=== PATIENT | female | born 1930 | race Caucasian/White ===

== ENCOUNTER → 2016-07-25 | Outpatient (CLI) | payer MEDICARE, BC ==
[~2016-07-25] MED LIST: ADVAIR 500/28 DISKU1 INH; ADVAIR 500/28 DISKUS IH; ADVAIR DISKUS1 DS2 IH; ALBUTEROL0.09 MG/A4 IH; ALBUTEROL2.5 MG/3 M IH; ALLFEN400 MG PO; ANTIVERT 12.512.5 MG PO; ANTIVERT12.5 M1 PO; ATIVAN 0.50.5 MG/TAB PO; ATIVAN1 MG PO; ATROVENT I0.2 MG/1 M IH; ATROVENT INHALE14 GM IH; AYR SALINE50 ML NAS; BACTROBAN 22GM22 GM TOP; BIAXIN PO; BISACODYL RC; BUMETANIDE2 M1 PO; BUMETANIDE2 MG PO; BUMEX2 MG PO; BYSTOLIC10 MG PO; CALCIUM 600 MG-1 TAB PO; CEPHALEXIN250 M1 PO; CINNAMON500 MG PO; CITALOPRAM40 MG PO; CLEOCIN HC150 MG/CAP PO; COLACE 100100 MG/CAP PO; COUMADIN 5MG5 MG/TAB PO; CRANBERRY1 CAP PO; CRANBERRY400 MG PO; CULTURELLE1 EACH PO; DOCUSATE SODIUM1 TAB PO; DOXYCYCLINE 10100 MG PO; DUO-KAPS1 CAP PO; DURAGESIC TD; ENABLEX 7.5MG7.5 MG PO; ESCITALOPRAM20 MG PO; FENTANYL 12MCG TP; FLONASE ALLERG9.9 ML NAS; FLONASE NASAL S16 GM NS; FLOVENT 220MCG7.9 GM IH; FLOVENT DI100 MCG/Ac IH; FLUTICASON0.05 MG/Ac NS; GAS RELIEF80 MG PO; GLUCOPHAGE PO; GOOD NEIGHBOR100 M2 PO; HYDROCODONE BIT1 T41 PO; IPRATROPIUM BROM3 M1 IH; ISORDIL 20MG20 M1 PO; KETOROLAC TROME10 MG PO; LAMICTAL XR50 MG PO; LANTUS SOLOS100 U/ML SC; LEVAQUIN 2250 MG/TAB PO; LEVAQUIN 750MG750 M1 PO; LEVOTHYROXIN0.125 MG PO; LEVOTHYROXINE0.1 MG PO; LEXAPRO20 MG PO; LISINOPRIL2.5 MG PO; LISINOPRIL5 MG PO; LOVENOX 4040 MG/0.4 SQ; M2 ZINC 5050 MG PO; MELADOX NATURAL3 MG PO; MELATONIN1 M1 PO; MELATONIN5 M2 PO; MERREM IV; METFORMIN750 MG PO; MILK OF MAG30 ML/CUP PO; MIRALAX PA17 GM/Dose PO; MIRAPEX0.125 MG PO; MIRAPEX0.25 M1 PO; MUCINEX 60600 MG/TA1 PO; MUCOMYST 4 ML4 M1; MYLICON PO; MYRBETRIQ25 MG PO; NATURAL E400 IU PO; NEXIUM 20MG CAP20 MG PO; NITROQUICK0.4 MG SL; NORCO 325 MG-51 TA1 PO; NORCO 325 MG-51 TAB PO; NORCO 325 MG-7.1 TAB PO; NORTRIPTYLINE H25 M1 PO; NORTRIPTYLINE25 MG PO; NOVOLOG 100U100 U/ML SQ; ONDANSETRON ODT8 MG PO; POTASSIUM CITR10 MEQ PO; POTASSIUM20 MEQ PO; PREDNISONE10 MG PO; PREDNISONE20 M1 PO; PREDNISONE20 MG PO; PROAIR RESPICL90 MCG IH; PROBIOTIC FORMU1 CAP PO; PYRIDIUM 100MG100 MG PO; REGLAN 10MG10 MG/TAB PO; REGLAN 5MG T5 MG/TAB PO; RESTORIL PO; SPIRIVA INH IH; SPIRIVA18 MCG IH; SSKI1 GM/ML PO; SYNTHROID25 MCG PO; TEMOVATE15 GM TOP; TRAZADONE HYDR100 MG PO; TRIAMCINOLONE0.1% TP; TYLENOL 500MG500 MG PO; VIBRAMYCIN HYC100 MG PO; VITAMIN C500 M5 PO; VITAMIN C500 MG PO; VITAMIN D1000 IU PO; VITAMIN E100 I3 PO; VORICONAZOLE PO; ZINC15 M1 PO; ZINC50 M2 PO; ZITHROMAX Z PA250 MG PO; ZOFRAN8 MG PO; ZYRTEC10 M1 PO; ZYRTEC10 MG PO; [UNRECOGNIZED DRUG - OTHER]; [UNRECOGNIZED DRUG - OTHER] IH
== END ==
LOC: LAB 08:35
DX: Z00.00 Encounter for general adult medical examination without abnormal findings (principal); E11.9 Type 2 diabetes mellitus without complications; I10 Essential (primary) hypertension

== ENCOUNTER → 2016-10-08 | Outpatient (CLI) | payer MEDICARE, BC ==
[2016-03-06 14:40] VITALS: BP 134/68
== END ==
LOC: LAB 11:21
DX: E03.8 Other specified hypothyroidism (principal)

== ENCOUNTER → 2016-11-01 | Outpatient (CLI) | payer MEDICARE, BC ==
[2016-03-06 14:40] VITALS: BP 134/68
== END ==
LOC: RAD 15:26
DX: R10.84 Generalized abdominal pain (principal); H66.91 Otitis media, unspecified, right ear; I10 Essential (primary) hypertension; F33.1 Major depressive disorder, recurrent, moderate

== ENCOUNTER → 2017-05-23 | Outpatient (CLI) | payer MEDICARE, BC ==
[2016-03-06 14:40] VITALS: BP 134/68
== END ==
LOC: RAD 12:43
DX: M48.061 Spinal stenosis, lumbar region without neurogenic claudication (principal); M16.0 Bilateral primary osteoarthritis of hip; M47.816 Spondylosis without myelopathy or radiculopathy, lumbar region

== ENCOUNTER → 2017-06-19 | Outpatient (CLI) | payer MEDICARE, BC ==
[2016-03-06 14:40] VITALS: BP 134/68
== END ==
LOC: RAD 11:59
DX: J44.1 Chronic obstructive pulmonary disease with (acute) exacerbation (principal); J10.1 Influenza due to other identified influenza virus with other respiratory manifestations; Z88.4 Allergy status to anesthetic agent; Z88.1 Allergy status to other antibiotic agents; Z88.5 Allergy status to narcotic agent; Z88.0 Allergy status to penicillin; Z88.2 Allergy status to sulfonamides

== ENCOUNTER → 2017-09-15 | Outpatient (CLI) | payer MEDICARE, BC ==
[2016-03-06 14:40] VITALS: BP 134/68
== END ==
LOC: LAB 10:03
DX: E07.9 Disorder of thyroid, unspecified (principal)

== ENCOUNTER 2017-09-20 14:12 | Emergency (ER) | payer MEDICARE, BC ==
[~2017-09-20] VITALS: Wt 125.0 kg
[2017-09-20] MEDS ORDERED: ZESTRIL2.5 M1 PO (14:35)
[2017-09-20] MEDS ORDERED: ATROVENT I0.2 MG/1 M IH (14:37)
[2017-09-20 14:59] LABS: EOS # 0.3 (0.04-0.40); EOS % 4.4 % (1.0-5.0); HEMATOCRIT 38.2 % (37.0-47.0); HEMOGLOBIN 12.2 g/dL (12.5-16.0); LYMPH# 0.9 (1.50-4.00); MEAN CELL VOLUME 98 fl (78-100); MEAN CORPUSCULAR HEMOGLOBIN 31 pg (27-31); MEAN CORPUSCULAR HGB CONC 32 g/dL (33-37); MEAN PLATELET VOLUME 10.7 fl (7.4-10.4); MONO # 0.5 (0.20-0.80); NEU # 4.6 (1.40-6.50); PLATELET COUNT 203 K/mm3 (130-400); RED CELL DISTRIBUTION WIDTH 14.3 % (11.5-14.5); WHITE BLOOD COUNT 6.4 K/mm3 (4.8-10.8)
[2017-09-20 15:12] LABS: ALBUMIN 3.7 g/dL (3.5-5.0); BUN/CREATININE RATIO 24.1 (6.0-26.0); CALCIUM 9.1 mg/dL (8.4-10.2); POTASSIUM 4.3 mmol/L (3.6-5.0); TOTAL BILIRUBIN 0.7 mg/dL (0.2-1.3)
[2017-09-20] MEDS ORDERED: POTASSIUM IODID PO (15:21)
[2017-09-20 15:40] LABS: PH-URINE 5.5 (5.0 - 8.0); URINE APPEARANCE CLEAR; URINE BILIRUBIN NEGATIVE (NEGATIVE); URINE BLOOD NEGATIVE (NEGATIVE); URINE COLOR STRAW; URINE GLUCOSE NEGATIVE (NEGATIVE); URINE KETONE NEGATIVE (NEGATIVE); URINE LEUKOCYTE ESTERASE 1+ (NEGATIVE); URINE NITRATE NEGATIVE (NEGATIVE); URINE PROTEIN(semi-quant) NEGATIVE (NEGATIVE); URINE UROBILINOGEN NORMAL (NORMAL)
[2017-09-20] MEDS ORDERED: PREDNISONE20 M1 PO (17:18)
[2017-09-20 18:01] VITALS: BP 126/78
== END 2017-09-20 17:35 | disposition home or self-care (01) ==
LOC: ED 14:12
PROVIDERS: Family Medicine
DX: J45.901 Unspecified asthma with (acute) exacerbation (principal); R60.9 Edema, unspecified; N39.0 Urinary tract infection, site not specified; J44.9 Chronic obstructive pulmonary disease, unspecified; E11.9 Type 2 diabetes mellitus without complications; I50.9 Heart failure, unspecified; Z79.4 Long term (current) use of insulin

== ENCOUNTER → 2017-10-06 | Outpatient (CLI) | payer MEDICARE, BC ==
[2017-09-20 18:01] VITALS: BP 126/78
[~2017-10-06] MED LIST changes: +POTASSIUM IODID PO; +ZESTRIL2.5 M1 PO
== END ==
LOC: LAB 11:50
DX: J44.9 Chronic obstructive pulmonary disease, unspecified (principal); E11.9 Type 2 diabetes mellitus without complications; H65.90 Unspecified nonsuppurative otitis media, unspecified ear; L98.491 Non-pressure chronic ulcer of skin of other sites limited to breakdown of skin; M21.612 Bunion of left foot

== ENCOUNTER → 2018-03-18 | Outpatient (CLI) | payer MEDICARE, BC | LOC: LAB 10:49 | DX: J44.9 Chronic obstructive pulmonary disease, unspecified (principal); E11.9 Type 2 diabetes mellitus without complications; H65.90 Unspecified nonsuppurative otitis media, unspecified ear; L98.491 Non-pressure chronic ulcer of skin of other sites limited to breakdown of skin; M21.612 Bunion of left foot ==

== ENCOUNTER → 2018-04-10 | Outpatient (CLI) | payer MEDICARE, BC ==
[2018-04-10 19:50] LABS: CALCIUM 10.4 mg/dL (8.4-10.2); POTASSIUM 4.3 mmol/L (3.6-5.0)
== END ==
LOC: LAB 14:01
PROVIDERS: Family Medicine
DX: I50.32 Chronic diastolic (congestive) heart failure (principal)

== ENCOUNTER → 2018-06-25 | Outpatient (CLI) | payer MEDICARE, BC ==
[2018-06-25 16:46] LABS: HEMATOCRIT 39.5 % (37.0-47.0); HEMOGLOBIN 12.6 g/dL (12.5-16.0); MEAN PLATELET VOLUME 11.1 fl (7.4-10.4); RED BLOOD COUNT 4.13 M/mm3 (4.10-5.30); RED CELL DISTRIBUTION WIDTH 13.6 % (11.5-14.5); WHITE BLOOD COUNT 7.5 K/mm3 (4.8-10.8)
[2018-06-25 16:50] LABS: CALCIUM 9.5 mg/dL (8.4-10.2); POTASSIUM 3.9 mmol/L (3.6-5.0)
== END ==
LOC: LAB 16:22
PROVIDERS: Family Medicine
DX: I50.32 Chronic diastolic (congestive) heart failure (principal); J44.9 Chronic obstructive pulmonary disease, unspecified; E11.622 Type 2 diabetes mellitus with other skin ulcer; L98.491 Non-pressure chronic ulcer of skin of other sites limited to breakdown of skin; M21.612 Bunion of left foot; R60.0 Localized edema; G25.81 Restless legs syndrome; I83.93 Asymptomatic varicose veins of bilateral lower extremities; H65.90 Unspecified nonsuppurative otitis media, unspecified ear

== ENCOUNTER → 2018-09-30 | Outpatient (CLI) | payer MEDICARE, BC | LOC: RAD 16:03 | DX: M48.061 Spinal stenosis, lumbar region without neurogenic claudication (principal); M16.11 Unilateral primary osteoarthritis, right hip ==

== ENCOUNTER 2018-11-30 06:30 | Observation (INO) | payer MEDICARE, BC ==
[~2018-11-30] VITALS: Ht 170.2 cm; Wt 122.7 kg
[2018-11-30] MEDS ORDERED: ACETAMINOPHEN-H1 TA2 PO (07:04)
[2018-11-30] MEDS ORDERED: ADVAIR DISKUS1 DS2 IH (07:06)
[2018-11-30] MEDS ORDERED: BUMEX 1MG TA1 MG/TA1 PO (07:07)
[2018-11-30 07:09] LABS: HEMATOCRIT 39.2 % (37.0-47.0); HEMOGLOBIN 12.2 g/dL (12.5-16.0); MEAN CELL VOLUME 98 fl (78-100); MEAN CORPUSCULAR HEMOGLOBIN 31 pg (27-31); MEAN CORPUSCULAR HGB CONC 31 g/dL (33-37); MEAN PLATELET VOLUME 10.2 fl (7.4-10.4); PLATELET COUNT 193 K/mm3 (130-400); RED BLOOD COUNT 3.99 M/mm3 (4.10-5.30); RED CELL DISTRIBUTION WIDTH 14.1 % (11.5-14.5); WHITE BLOOD COUNT 9.6 K/mm3 (4.8-10.8)
[2018-11-30] MEDS ORDERED: IPRATROPIUM BROM3 M1 IH (07:09)
[2018-11-30] MEDS ORDERED: FERROUS SULFAT325 M4 PO (07:10)
[2018-11-30 07:19] LABS: POTASSIUM 4.4 mmol/L (3.5-5.1); SODIUM 140 mmol/L (136-145)
[2018-11-30 07:20] LABS: ALBUMIN 3.4 g/dL (3.4-4.8); CALCIUM 9.3 mg/dL (8.3-10.5)
[2018-11-30] MEDS ORDERED: ATROVENT I0.2 MG/1 M IH (07:20)
[2018-11-30 07:21] LABS: TOTAL PROTEIN 5.7 g/dL (6.2-8.1)
[2018-11-30] MEDS ORDERED: ISORDIL 20MG20 MG (07:21)
[2018-11-30 07:22] LABS: CARBON DIOXIDE 23 mmol/L (23-31)
[2018-11-30 07:23] LABS: GLUCOSE 197 mg/dL (65-105); TOTAL BILIRUBIN 0.6 mg/dL (0.2-1.2)
[2018-11-30 07:26] LABS: AST-SGOT 10 U/L (5-34)
[2018-11-30] MEDS ORDERED: LEVOTHYROXINE125 MCG PO (07:26)
[2018-11-30 07:29] LABS: ALT/SGPT 16 U/L (0-55)
[2018-11-30] MEDS ORDERED: LEXAPRO20 M1 PO (07:29)
[2018-11-30] MEDS ORDERED: MELOXICAM15 MG PO (07:31)
[2018-11-30 07:34] LABS: LYMPHOCYTE 5 % (20-51); MONOCYTE 4 % (3-10); NEUTROPHILS 90 % (42-75)
[2018-11-30 07:35] LABS: LIPASE 17 U/L (8-78)
[2018-11-30 07:38] LABS: TROPONIN-I < 0.03 ng/mL (<0.030)
[2018-11-30 09:46] VITALS: BP 143/71
[2018-11-30 11:00] VITALS: BP 139/79
[2018-11-30 15:12] VITALS: BP 123/77
[2018-11-30 18:56] VITALS: BP 121/67
[2018-11-30 22:29] VITALS: BP 99/60
[2018-12-01 02:34] VITALS: BP 132/66
[2018-12-01 06:06] VITALS: BP 122/72
[2018-12-01 07:12] LABS: EOS # 0.2 (0.04-0.40); EOS % 1.9 % (1.0-5.0); HEMATOCRIT 36.8 % (37.0-47.0); HEMOGLOBIN 11.4 g/dL (12.5-16.0); MEAN CELL VOLUME 101 fl (78-100); MEAN CORPUSCULAR HEMOGLOBIN 31 pg (27-31); MEAN CORPUSCULAR HGB CONC 31 g/dL (33-37); MEAN PLATELET VOLUME 10.2 fl (7.4-10.4); MONO # 0.5 (0.20-0.80); NEU # 6.2 (1.40-6.50); PLATELET COUNT 193 K/mm3 (130-400); RED BLOOD COUNT 3.66 M/mm3 (4.10-5.30); RED CELL DISTRIBUTION WIDTH 14.4 % (11.5-14.5)
[2018-12-01 07:19] LABS: ALBUMIN 3.2 g/dL (3.4-4.8); POTASSIUM 4.9 mmol/L (3.5-5.1)
[2018-12-01 07:20] LABS: CALCIUM 8.4 mg/dL (8.3-10.5)
[2018-12-01 07:21] LABS: TOTAL PROTEIN 5.4 g/dL (6.2-8.1)
[2018-12-01 07:23] LABS: TOTAL BILIRUBIN 0.8 mg/dL (0.2-1.2)
[2018-12-01 11:00] VITALS: BP 145/60
== END 2018-12-01 12:00 | disposition home or self-care (01) ==
LOC: ED 06:30 → MED/SURG 09:13
PROVIDERS: Family Medicine; ADMIT Nurse Practitioner Primary Care
DX: K52.9 Noninfective gastroenteritis and colitis, unspecified (principal); E11.9 Type 2 diabetes mellitus without complications; E03.9 Hypothyroidism, unspecified; F41.9 Anxiety disorder, unspecified; K58.9 Irritable bowel syndrome, unspecified; I10 Essential (primary) hypertension; J44.9 Chronic obstructive pulmonary disease, unspecified; E66.9 Obesity, unspecified; Z79.899 Other long term (current) drug therapy; Z79.84 Long term (current) use of oral hypoglycemic drugs; Z88.0 Allergy status to penicillin; Z88.2 Allergy status to sulfonamides
CPT/HCPCS: G0378; J1650; J1940; J2270; J2405; J7030; Q9967

== ENCOUNTER → 2018-12-14 | Outpatient (CLI) | payer MEDICARE, BC ==
[2018-12-01 11:00] VITALS: BP 145/60
[~2018-12-14] MED LIST changes: +ACETAMINOPHEN-H1 TA2 PO; +BUMEX 1MG TA1 MG/TA1 PO; +FERROUS SULFAT325 M4 PO; +ISORDIL 20MG20 MG; +LEVOTHYROXINE125 MCG PO; +LEXAPRO20 M1 PO; +MELOXICAM15 MG PO
== END ==
LOC: RAD 14:16
DX: E11.9 Type 2 diabetes mellitus without complications (principal); G25.81 Restless legs syndrome; K52.9 Noninfective gastroenteritis and colitis, unspecified; I83.93 Asymptomatic varicose veins of bilateral lower extremities; E03.9 Hypothyroidism, unspecified; R60.0 Localized edema; R10.9 Unspecified abdominal pain

== ENCOUNTER → 2019-01-27 | Outpatient (CLI) | payer MEDICARE, BC | LOC: RAD 11:47 | DX: M19.042 Primary osteoarthritis, left hand (principal); W19.XXXA Unspecified fall, initial encounter ==

== ENCOUNTER → 2019-02-19 | Outpatient (CLI) | payer MEDICARE, BC ==
[2019-02-19 12:42] LABS: HEMOGLOBIN 12.5 g/dL (12.5-16.0); MEAN PLATELET VOLUME 10.4 fl (7.4-10.4); RED BLOOD COUNT 3.94 M/mm3 (4.10-5.30); RED CELL DISTRIBUTION WIDTH 13.7 % (11.5-14.5); WHITE BLOOD COUNT 8.1 K/mm3 (4.8-10.8)
== END ==
LOC: LAB 12:09
PROVIDERS: Family Medicine
DX: M19.011 Primary osteoarthritis, right shoulder (principal); G25.81 Restless legs syndrome; I83.93 Asymptomatic varicose veins of bilateral lower extremities

== ENCOUNTER 2019-03-02 14:18 | Inpatient (IN) | payer MEDICARE, BC ==
[~2019-03-02] VITALS: Ht 170.2 cm; Wt 122.6 kg
[~2019-03-02 14:18] MED LIST changes: +AZITHROMYCIN 500MGPK PO; +B-121000 MCG PO; +CINNAMON BARK P1 POW; +CRANBERRY200 MG PO; +DAILY VITAMIN1 EAC3 PO; +ELIQUIS5 MG PO; +INCRUSE EL62.5 MCG/A IH; -ISORDIL 20MG20 M1 PO; +ISORDIL 20MG20 MG PO; +K-TAB20 MEQ PO; +LANTUS SOLOS100 U/ML SQ; +NATURAL ZINC50 MG PO; +NIACIN50 M1 PO; -NITROQUICK0.4 MG SL; +NITROSTAT0.4 M1 SL; +ONDANSETRON HYDR4 MG PO; +REMERON15 MG PO; -VITAMIN E100 I3 PO; +VITAMIN E200 UNI1 PO; -ZINC50 M2 PO
[2019-03-02 15:31] VITALS: BP 151/74
[2019-03-02 18:00] VITALS: BP 145/68
[2019-03-03 05:53] VITALS: BP 144/62
[2019-03-03 18:48] VITALS: BP 114/66
[2019-03-04 06:02] VITALS: BP 150/73
[2019-03-04 18:00] VITALS: BP 112/60
[2019-03-05 06:09] VITALS: BP 158/67
[2019-03-05] MEDS ORDERED: DIFLUCAN150 M1 PO (11:25)
[2019-03-05] MEDS ORDERED: NOVOLOG FLEX100 U/ML SQ (11:27)
[2019-03-05] MEDS ORDERED: PREDNISONE20 M1 PO (11:28)
[2019-03-05] MEDS ORDERED: NYAMYC100000 U/G TP (11:29)
[2019-03-05 13:23] VITALS: BP 132/70
== END 2019-03-05 13:11 | disposition home or self-care (01) | DRG 947 ==
LOC: MED/SURG 14:18
PROVIDERS: ADMIT Nurse Practitioner Primary Care
DX: R53.81 Other malaise (principal); J18.9 Pneumonia, unspecified organism; J44.1 Chronic obstructive pulmonary disease with (acute) exacerbation; J44.0 Chronic obstructive pulmonary disease with (acute) lower respiratory infection; I48.0 Paroxysmal atrial fibrillation; E03.9 Hypothyroidism, unspecified; I12.9 Hypertensive chronic kidney disease with stage 1 through stage 4 chronic kidney disease, or unspecified chronic kidney disease; E11.22 Type 2 diabetes mellitus with diabetic chronic kidney disease; N18.9 Chronic kidney disease, unspecified; L30.8 Other specified dermatitis; E66.9 Obesity, unspecified; F32.9 Major depressive disorder, single episode, unspecified; M48.061 Spinal stenosis, lumbar region without neurogenic claudication; Z79.52 Long term (current) use of systemic steroids; Z79.01 Long term (current) use of anticoagulants; Z79.891 Long term (current) use of opiate analgesic; Z79.4 Long term (current) use of insulin; Z90.710 Acquired absence of both cervix and uterus; Z96.652 Presence of left artificial knee joint; Z88.0 Allergy status to penicillin; Z88.2 Allergy status to sulfonamides; Z88.6 Allergy status to analgesic agent
CPT/HCPCS: J1815; J7512

== ENCOUNTER 2019-03-09 14:33 | Emergency (ER) | payer MEDICARE, BC ==
[~2019-03-09] VITALS: Wt 125.0 kg
[~2019-03-09 14:33] MED LIST changes: +DIFLUCAN150 M1 PO; +NOVOLOG FLEX100 U/ML SQ; +NYAMYC100000 U/G TP
[2019-03-09 14:58] LABS: HEMATOCRIT 41.6 % (37.0-47.0); HEMOGLOBIN 13.4 g/dL (12.5-16.0); MEAN CELL VOLUME 98 fl (78-100); MEAN CORPUSCULAR HEMOGLOBIN 32 pg (27-31); MEAN CORPUSCULAR HGB CONC 32 g/dL (33-37); MEAN PLATELET VOLUME 11.8 fl (7.4-10.4); PLATELET COUNT 169 K/mm3 (130-400); RED BLOOD COUNT 4.26 M/mm3 (4.10-5.30); RED CELL DISTRIBUTION WIDTH 13.4 % (11.5-14.5); WHITE BLOOD COUNT 12.4 K/mm3 (4.8-10.8)
[2019-03-09 15:00] LABS: ALBUMIN 3.6 g/dL (3.4-4.8); POTASSIUM 4.5 mmol/L (3.5-5.1)
[2019-03-09 15:02] LABS: CALCIUM 9.6 mg/dL (8.3-10.5)
[2019-03-09 15:03] LABS: TOTAL PROTEIN 6.3 g/dL (6.2-8.1)
[2019-03-09 15:05] LABS: TOTAL BILIRUBIN 0.5 mg/dL (0.2-1.2)
[2019-03-09 15:05] LABS: URINE APPEARANCE CLEAR; URINE COLOR YELLOW; URINE KETONE NEGATIVE (NEGATIVE); URINE PROTEIN(semi-quant) NEGATIVE (NEGATIVE)
[2019-03-09 15:06] LABS: URINE BILIRUBIN NEGATIVE (NEGATIVE); URINE BLOOD NEGATIVE (NEGATIVE); URINE LEUKOCYTE ESTERASE NEGATIVE (NEGATIVE); URINE MUCUS PRESENT (NOT PRESENT); URINE NITRATE NEGATIVE (NEGATIVE); URINE UROBILINOGEN NORMAL (NORMAL)
[2019-03-09 15:09] LABS: LYMPHOCYTE 4 % (20-51); MONOCYTE 4 % (3-10); NEUTROPHILS 92 % (42-75)
[2019-03-09 16:37] VITALS: BP 154/70
== END 2019-03-09 17:00 | disposition home or self-care (01) ==
LOC: ED 14:33
PROVIDERS: Nurse Practitioner
DX: E11.65 Type 2 diabetes mellitus with hyperglycemia (principal); I50.9 Heart failure, unspecified; J44.9 Chronic obstructive pulmonary disease, unspecified; I48.91 Unspecified atrial fibrillation; F32.9 Major depressive disorder, single episode, unspecified; F41.9 Anxiety disorder, unspecified; K21.9 Gastro-esophageal reflux disease without esophagitis; K58.9 Irritable bowel syndrome, unspecified; Z98.890 Other specified postprocedural states; Z79.4 Long term (current) use of insulin; Z90.710 Acquired absence of both cervix and uterus; Z96.652 Presence of left artificial knee joint; Z79.52 Long term (current) use of systemic steroids; Z79.51 Long term (current) use of inhaled steroids
CPT/HCPCS: J7030

== ENCOUNTER → 2019-03-19 | Outpatient (CLI) | payer MEDICARE, BC ==
[2019-03-09 16:37] VITALS: BP 154/70
== END ==
LOC: RAD 10:43
DX: S99.921A Unspecified injury of right foot, initial encounter (principal); W19.XXXA Unspecified fall, initial encounter

== ENCOUNTER → 2019-05-06 | Outpatient (CLI) | payer MEDICARE, BC ==
[2019-05-06 07:41] VITALS: BP 133/54
[2019-05-06 08:21] LABS: ALBUMIN 3.8 g/dL (3.4-4.8)
[2019-05-06 08:24] LABS: TOTAL PROTEIN 6.6 g/dL (6.2-8.1)
[2019-05-06 08:26] LABS: TOTAL BILIRUBIN 0.7 mg/dL (0.2-1.2)
[2019-05-06 08:29] LABS: DIRECT BILIRUBIN 0.2 mg/dL (0.0-0.5)
== END ==
LOC: LAB 07:53
PROVIDERS: Internal Medicine Interventional Cardiology
DX: I48.0 Paroxysmal atrial fibrillation (principal)

== ENCOUNTER 2019-05-07 07:28 | Outpatient (RCR) | payer MEDICARE, BC ==
[2019-04-27 15:10] VITALS: BP 115/72
[2019-04-28 07:40] VITALS: BP 142/70
[2019-04-28 18:30] VITALS: BP 109/43
[2019-04-29 08:29] VITALS: BP 129/68
[2019-04-29 18:46] VITALS: BP 127/59
[2019-04-30 07:42] VITALS: BP 154/73
[2019-04-30 18:38] VITALS: BP 146/52
[2019-05-01 07:29] VITALS: BP 120/59
[2019-05-01 18:59] VITALS: BP 151/67
[2019-05-02 07:33] VITALS: BP 115/80
[2019-05-02 18:35] VITALS: BP 162/63
[2019-05-03 07:35] VITALS: BP 138/51
[2019-05-03 18:48] VITALS: BP 107/45
[2019-05-04 07:37] VITALS: BP 152/67
[2019-05-04 19:00] VITALS: BP 135/66
[2019-05-05 07:35] VITALS: BP 123/69
[2019-05-05 18:30] VITALS: BP 109/62
[2019-05-06 07:41] VITALS: BP 133/54
[2019-05-06 18:50] VITALS: BP 145/71
[~2019-05-07] VITALS: Ht 157.5 cm; Wt 125.0 kg
[2019-05-07 07:38] VITALS: BP 104/73
== END 2019-05-07 08:00 | disposition home or self-care (01) ==
LOC: AMSURD 07:28
DX: Z01.89 Encounter for other specified special examinations (principal)
CPT/HCPCS: A4216; J0713

== ENCOUNTER → 2019-06-21 | Outpatient (CLI) | payer MEDICARE, BC ==
[2019-06-21 09:05] LABS: HEMATOCRIT 38.3 % (37.0-47.0); HEMOGLOBIN 11.9 g/dL (12.5-16.0); MEAN PLATELET VOLUME 11.1 fl (7.4-10.4); RED BLOOD COUNT 3.93 M/mm3 (4.10-5.30); RED CELL DISTRIBUTION WIDTH 13.4 % (11.5-14.5); WHITE BLOOD COUNT 3.9 K/mm3 (4.8-10.8)
[2019-06-21 09:30] LABS: POTASSIUM 4.1 mmol/L (3.5-5.1)
[2019-06-21 09:31] LABS: CALCIUM 9.7 mg/dL (8.3-10.5)
[2019-06-21 09:33] LABS: TOTAL PROTEIN 6.7 g/dL (6.2-8.1)
[2019-06-21 09:34] LABS: TOTAL BILIRUBIN 0.7 mg/dL (0.2-1.2)
== END ==
LOC: LAB 08:25
PROVIDERS: Family Medicine
DX: I83.93 Asymptomatic varicose veins of bilateral lower extremities (principal); G25.81 Restless legs syndrome; E11.9 Type 2 diabetes mellitus without complications; I11.0 Hypertensive heart disease with heart failure; I50.32 Chronic diastolic (congestive) heart failure; R60.0 Localized edema; Z86.2 Personal history of diseases of the blood and blood-forming organs and certain disorders involving the immune mechanism

== ENCOUNTER 2019-07-10 19:18 | Emergency (ER) | payer MEDICARE, BC ==
[2019-07-10 20:13] LABS: EOS # 0.2 (0.04-0.40); HEMATOCRIT 39.2 % (37.0-47.0); HEMOGLOBIN 12.2 g/dL (12.5-16.0); LYMPH# 1.2 (1.50-4.00); MEAN CELL VOLUME 98 fl (78-100); MEAN CORPUSCULAR HEMOGLOBIN 31 pg (27-31); MEAN CORPUSCULAR HGB CONC 31 g/dL (33-37); MEAN PLATELET VOLUME 10.2 fl (7.4-10.4); MONO # 0.5 (0.20-0.80); NEU # 4.9 (1.40-6.50); PLATELET COUNT 239 K/mm3 (130-400); WHITE BLOOD COUNT 6.8 K/mm3 (4.8-10.8)
[2019-07-10 20:24] LABS: POTASSIUM 4.1 mmol/L (3.5-5.1)
[2019-07-10 20:25] LABS: CALCIUM 9.7 mg/dL (8.3-10.5)
[2019-07-10] MEDS ORDERED: DILTIAZEM 24HR180 M1 PO (20:52)
[2019-07-10 21:19] VITALS: BP 132/52
== END 2019-07-10 21:26 | disposition home or self-care (01) ==
LOC: ED 19:18
PROVIDERS: Family Medicine
DX: R00.0 Tachycardia, unspecified (principal); T46.1X5A Adverse effect of calcium-channel blockers, initial encounter; I11.0 Hypertensive heart disease with heart failure; I50.9 Heart failure, unspecified; I48.91 Unspecified atrial fibrillation; E11.9 Type 2 diabetes mellitus without complications; J44.9 Chronic obstructive pulmonary disease, unspecified; F41.9 Anxiety disorder, unspecified; F32.9 Major depressive disorder, single episode, unspecified; G47.30 Sleep apnea, unspecified; Z79.4 Long term (current) use of insulin; Z96.652 Presence of left artificial knee joint

== ENCOUNTER 2019-07-15 19:17 | Emergency (ER) | payer MEDICARE, BC ==
[~2019-07-15 19:17] MED LIST changes: +DILTIAZEM 24HR180 M1 PO
[2019-07-15 20:22] VITALS: BP 127/54
[2019-07-15] MEDS ORDERED: PREDNISONE20 MG PO (20:32)
== END 2019-07-15 20:38 | disposition home or self-care (01) ==
LOC: ED 19:17
DX: T78.40XA Allergy, unspecified, initial encounter (principal); L29.9 Pruritus, unspecified; I11.0 Hypertensive heart disease with heart failure; I50.9 Heart failure, unspecified; I48.91 Unspecified atrial fibrillation; J44.9 Chronic obstructive pulmonary disease, unspecified; F32.9 Major depressive disorder, single episode, unspecified; F41.9 Anxiety disorder, unspecified; E11.42 Type 2 diabetes mellitus with diabetic polyneuropathy; G47.30 Sleep apnea, unspecified; Z79.4 Long term (current) use of insulin
CPT/HCPCS: J2930

== ENCOUNTER → 2019-07-19 | Outpatient (CLI) | payer MEDICARE, BC ==
[2019-07-15 20:22] VITALS: BP 127/54
[2019-07-19 12:59] LABS: POTASSIUM 4.1 mmol/L (3.5-5.1)
[2019-07-19 13:00] LABS: CALCIUM 9.7 mg/dL (8.3-10.5)
[2019-07-19 13:13] LABS: URINE APPEARANCE CLEAR; URINE BILIRUBIN NEGATIVE (NEGATIVE); URINE BLOOD NEGATIVE (NEGATIVE); URINE COLOR YELLOW; URINE GLUCOSE NEGATIVE (NEGATIVE); URINE KETONE NEGATIVE (NEGATIVE); URINE LEUKOCYTE ESTERASE TRACE (NEGATIVE); URINE NITRATE NEGATIVE (NEGATIVE); URINE PROTEIN(semi-quant) TRACE mg/dL (NEGATIVE); URINE UROBILINOGEN NORMAL (NORMAL)
[2019-07-19 13:14] LABS: URINE MUCUS PRESENT (NOT PRESENT)
[2019-07-19 21:54] LABS: CREATININE OTHER SOURCE 80 mg/dL (())
== END ==
LOC: LAB 12:36
PROVIDERS: Family Medicine
DX: E11.22 Type 2 diabetes mellitus with diabetic chronic kidney disease (principal); N18.3 Chronic kidney disease, stage 3 (moderate); I50.32 Chronic diastolic (congestive) heart failure; J44.9 Chronic obstructive pulmonary disease, unspecified

== ENCOUNTER → 2019-07-22 | Outpatient (CLI) | payer MEDICARE, BC ==
[2019-07-15 20:22] VITALS: BP 127/54
[~2019-07-22] MED LIST changes: +DILTIAZEM HCL90 MG PO
[2019-07-22 23:33] LABS: IMMUNOGLOBULIN E, TOTAL <20 IU/mL (0-100)
== END ==
LOC: LAB 11:32
PROVIDERS: Physician Assistant
DX: J45.909 Unspecified asthma, uncomplicated (principal)

== ENCOUNTER 2019-07-31 19:23 | Emergency (ER) | payer MEDICARE, BC ==
[~2019-07-31] VITALS: Ht 170.2 cm; Wt 122.7 kg
[2019-07-31 19:59] LABS: EOS # 0.1 (0.04-0.40); EOS % 2.2 % (1.0-5.0); HEMATOCRIT 36.8 % (37.0-47.0); HEMOGLOBIN 11.7 g/dL (12.5-16.0); LYMPH# 0.8 (1.50-4.00); MEAN CELL VOLUME 97 fl (78-100); MEAN CORPUSCULAR HEMOGLOBIN 31 pg (27-31); MEAN CORPUSCULAR HGB CONC 32 g/dL (33-37); MEAN PLATELET VOLUME 10.1 fl (7.4-10.4); MONO # 0.5 (0.20-0.80); NEU # 5.1 (1.40-6.50); PLATELET COUNT 197 K/mm3 (130-400); RED BLOOD COUNT 3.78 M/mm3 (4.10-5.30); RED CELL DISTRIBUTION WIDTH 13.8 % (11.5-14.5); WHITE BLOOD COUNT 6.5 K/mm3 (4.8-10.8)
[2019-07-31] MEDS ORDERED: LISINOPRIL2.5 MG PO (20:02)
[2019-07-31] MEDS ORDERED: INCRUSE EL62.5 MCG/A IH (20:06)
[2019-07-31 20:20] LABS: CALCIUM 10.2 mg/dL (8.3-10.5)
[2019-07-31 21:12] VITALS: BP 164/74
== END 2019-07-31 21:20 | disposition home or self-care (01) ==
LOC: ED 19:23
PROVIDERS: Family Medicine
DX: J44.1 Chronic obstructive pulmonary disease with (acute) exacerbation (principal); I48.91 Unspecified atrial fibrillation; I11.0 Hypertensive heart disease with heart failure; I50.9 Heart failure, unspecified; E11.9 Type 2 diabetes mellitus without complications; F41.9 Anxiety disorder, unspecified; G25.81 Restless legs syndrome; G47.30 Sleep apnea, unspecified; Z79.4 Long term (current) use of insulin; Z96.652 Presence of left artificial knee joint

== ENCOUNTER 2019-08-09 08:51 | Outpatient (RCR) | payer MEDICARE, BC ==
[2019-07-30 16:22] VITALS: BP 124/68
[2019-07-31 08:01] VITALS: BP 143/67
[2019-07-31 19:28] VITALS: BP 137/65
[2019-08-01 08:02] VITALS: BP 150/57
[2019-08-01 19:40] VITALS: BP 120/60
[2019-08-02 09:08] VITALS: BP 115/68
[2019-08-02 20:18] VITALS: BP 168/86
[2019-08-03 09:09] VITALS: BP 123/53
[2019-08-03 19:55] VITALS: BP 158/79
[2019-08-04 08:55] VITALS: BP 142/58
[2019-08-04 18:30] VITALS: BP 121/78
[2019-08-05 09:28] VITALS: BP 135/72
[2019-08-05 19:57] VITALS: BP 136/65
[2019-08-06 09:15] VITALS: BP 137/63
[2019-08-06 19:55] VITALS: BP 152/91
[2019-08-07 08:59] VITALS: BP 128/68
[2019-08-07 19:41] VITALS: BP 139/55
[2019-08-08 08:54] VITALS: BP 118/70
[2019-08-08 19:30] VITALS: BP 112/78
[~2019-08-09] VITALS: Ht 157.5 cm; Wt 125.0 kg
[2019-08-09 09:20] VITALS: BP 116/74
== END 2019-08-09 17:00 | disposition home or self-care (01) ==
LOC: AMSURD 08:51
DX: A49.8 Other bacterial infections of unspecified site (principal)
CPT/HCPCS: A4216; J0713

== ENCOUNTER → 2019-09-17 | Outpatient (CLI) | payer MEDICARE, BC ==
[2019-09-17 14:50] LABS: EOS # 0.1 (0.04-0.40); EOS % 2.3 % (1.0-5.0); HEMOGLOBIN 12.8 g/dL (12.5-16.0); MEAN CELL VOLUME 96 fl (78-100); MEAN CORPUSCULAR HEMOGLOBIN 31 pg (27-31); MEAN CORPUSCULAR HGB CONC 32 g/dL (33-37); MEAN PLATELET VOLUME 10.6 fl (7.4-10.4); MONO # 0.5 (0.20-0.80); NEU # 4.4 (1.40-6.50); PLATELET COUNT 216 K/mm3 (130-400); RED BLOOD COUNT 4.19 M/mm3 (4.10-5.30); RED CELL DISTRIBUTION WIDTH 13.5 % (11.5-14.5)
[2019-09-17 14:55] LABS: POTASSIUM 4.3 mmol/L (3.5-5.1)
[2019-09-17 14:56] LABS: CALCIUM 9.9 mg/dL (8.3-10.5)
[2019-09-17 14:57] LABS: TOTAL PROTEIN 6.7 g/dL (6.2-8.1)
[2019-09-17 14:59] LABS: TOTAL BILIRUBIN 0.6 mg/dL (0.2-1.2)
[2019-09-17 15:59] LABS: URINE APPEARANCE CLEAR; URINE COLOR YELLOW
[2019-09-17 16:00] LABS: URINE BILIRUBIN NEGATIVE (NEGATIVE); URINE BLOOD NEGATIVE (NEGATIVE); URINE GLUCOSE NEGATIVE (NEGATIVE); URINE KETONE NEGATIVE (NEGATIVE); URINE LEUKOCYTE ESTERASE NEGATIVE (NEGATIVE); URINE NITRATE NEGATIVE (NEGATIVE); URINE PROTEIN(semi-quant) NEGATIVE (NEGATIVE); URINE UROBILINOGEN NORMAL (NORMAL); URINE WBC 0-1 /hpf (0-3)
== END ==
LOC: RAD 14:14 → LAB 14:14
PROVIDERS: Family Medicine
DX: R30.9 Painful micturition, unspecified (principal); R11.0 Nausea

== ENCOUNTER → 2019-10-08 | Outpatient (CLI) | payer MEDICARE, BC | LOC: RAD 07:59 | DX: N18.3 Chronic kidney disease, stage 3 (moderate) (principal) ==

== ENCOUNTER 2019-10-22 11:53 | Emergency (ER) | payer MEDICARE, BC ==
[~2019-10-22] VITALS: Ht 170.2 cm; Wt 107.7 kg
[2019-10-22] MEDS ORDERED: SOTALOL HYDROCH80 MG PO (12:13)
[2019-10-22] MEDS ORDERED: ATROVENT I0.2 MG/1 M IH (12:14)
[2019-10-22] MEDS ORDERED: FLUTICASON0.05 MG/AC NS (12:20)
[2019-10-22 13:05] LABS: EOS # 0.2 (0.04-0.40); EOS % 2.7 % (1.0-5.0); HEMATOCRIT 37.8 % (37.0-47.0); HEMOGLOBIN 11.9 g/dL (12.5-16.0); MEAN CELL VOLUME 97 fl (78-100); MEAN CORPUSCULAR HEMOGLOBIN 31 pg (27-31); MEAN CORPUSCULAR HGB CONC 32 g/dL (33-37); MEAN PLATELET VOLUME 10.5 fl (7.4-10.4); MONO # 0.3 (0.20-0.80); NEU # 4.7 (1.40-6.50); PLATELET COUNT 219 K/mm3 (130-400); RED BLOOD COUNT 3.89 M/mm3 (4.10-5.30); RED CELL DISTRIBUTION WIDTH 13.7 % (11.5-14.5); WHITE BLOOD COUNT 5.9 K/mm3 (4.8-10.8)
[2019-10-22 13:07] LABS: LYMPH# 0.7 (1.50-4.00)
[2019-10-22 13:13] LABS: ALBUMIN 3.8 g/dL (3.4-4.8); POTASSIUM 4.4 mmol/L (3.5-5.1); SODIUM 138 mmol/L (136-145)
[2019-10-22 13:15] LABS: GLUCOSE 108 mg/dL (65-105)
[2019-10-22 13:17] LABS: TOTAL BILIRUBIN 0.8 mg/dL (0.2-1.2)
[2019-10-22 13:18] LABS: CALCIUM 10.2 mg/dL (8.3-10.5)
[2019-10-22 13:20] LABS: TOTAL PROTEIN 6.4 g/dL (6.2-8.1)
[2019-10-22 13:21] LABS: AST-SGOT 15 U/L (5-34); CARBON DIOXIDE 27 mmol/L (23-31)
[2019-10-22 13:22] LABS: ALT/SGPT 14 U/L (0-55)
[2019-10-22 13:29] LABS: TROPONIN-I < 0.03 ng/mL (<0.030)
[2019-10-22 13:30] LABS: D-DIMER 0.6 mg/L FEU (0.15-0.50)
[2019-10-22 14:36] LABS: URINE APPEARANCE CLEAR; URINE BILIRUBIN NEGATIVE (NEGATIVE); URINE BLOOD NEGATIVE (NEGATIVE); URINE COLOR YELLOW; URINE GLUCOSE NEGATIVE (NEGATIVE); URINE KETONE NEGATIVE (NEGATIVE); URINE LEUKOCYTE ESTERASE TRACE (NEGATIVE); URINE NITRATE NEGATIVE (NEGATIVE); URINE PROTEIN(semi-quant) NEGATIVE (NEGATIVE); URINE UROBILINOGEN NORMAL (NORMAL)
[2019-10-22 16:45] VITALS: BP 150/80
== END 2019-10-22 16:45 | disposition short-term general hospital (02) ==
LOC: ED 11:53
PROVIDERS: Nurse Practitioner
DX: J18.9 Pneumonia, unspecified organism (principal); J90 Pleural effusion, not elsewhere classified; I10 Essential (primary) hypertension; E11.9 Type 2 diabetes mellitus without complications; F32.9 Major depressive disorder, single episode, unspecified; F41.9 Anxiety disorder, unspecified; K21.9 Gastro-esophageal reflux disease without esophagitis; J44.9 Chronic obstructive pulmonary disease, unspecified; Z79.4 Long term (current) use of insulin; Z20.828 Contact with and (suspected) exposure to other viral communicable diseases; Z90.710 Acquired absence of both cervix and uterus
CPT/HCPCS: A4216; J0696; Q9967

== ENCOUNTER 2019-10-29 10:39 | Emergency (ER) | payer MEDICARE, BC ==
[~2019-10-29 10:39] MED LIST changes: +FLUTICASON0.05 MG/AC NS; +SOTALOL HYDROCH80 MG PO
[2019-10-29] MEDS ORDERED: PREDNISONE10 MG PO (11:01)
[2019-10-29] MEDS ORDERED: RT SPIRIVA INH18 MCG IH (11:06)
[2019-10-29] MEDS ORDERED: SYMBICORT1 AE3 IH (11:09)
[2019-10-29] MEDS ORDERED: LANTUS PEN100 U/ML SQ (11:10)
[2019-10-29 11:12] LABS: HEMATOCRIT 40.8 % (37.0-47.0); HEMOGLOBIN 13.2 g/dL (12.5-16.0); MEAN CELL VOLUME 95 fl (78-100); MEAN CORPUSCULAR HEMOGLOBIN 31 pg (27-31); MEAN CORPUSCULAR HGB CONC 32 g/dL (33-37); MEAN PLATELET VOLUME 11.2 fl (7.4-10.4); PLATELET COUNT 194 K/mm3 (130-400); RED BLOOD COUNT 4.28 M/mm3 (4.10-5.30); RED CELL DISTRIBUTION WIDTH 13.5 % (11.5-14.5); WHITE BLOOD COUNT 10.8 K/mm3 (4.8-10.8)
[2019-10-29 11:18] LABS: ALBUMIN 3.6 g/dL (3.4-4.8)
[2019-10-29 11:20] LABS: CALCIUM 8.8 mg/dL (8.3-10.5)
[2019-10-29 11:21] LABS: TOTAL PROTEIN 6.1 g/dL (6.2-8.1)
[2019-10-29 11:23] LABS: TOTAL BILIRUBIN 0.9 mg/dL (0.2-1.2)
[2019-10-29 11:46] LABS: LYMPHOCYTE 5 % (20-51); MONOCYTE 4 % (3-10); NEUTROPHILS 91 % (42-75)
[2019-10-29 13:24] VITALS: BP 150/55
[2019-10-29] MEDS ORDERED: NYSTATIN OINTME15 GM TP (21:25)
[2019-10-29] MEDS ORDERED: NYAMYC100000 U/G TP (21:29)
== END 2019-10-29 13:26 | disposition other institution (70) ==
LOC: ED 10:39
PROVIDERS: Nurse Practitioner Primary Care
DX: J44.1 Chronic obstructive pulmonary disease with (acute) exacerbation (principal); I13.0 Hypertensive heart and chronic kidney disease with heart failure and stage 1 through stage 4 chronic kidney disease, or unspecified chronic kidney disease; E11.22 Type 2 diabetes mellitus with diabetic chronic kidney disease; I50.9 Heart failure, unspecified; J90 Pleural effusion, not elsewhere classified; N18.9 Chronic kidney disease, unspecified; E78.5 Hyperlipidemia, unspecified; F32.9 Major depressive disorder, single episode, unspecified; F41.9 Anxiety disorder, unspecified; Z79.4 Long term (current) use of insulin; Z90.710 Acquired absence of both cervix and uterus; Z87.891 Personal history of nicotine dependence; Z79.01 Long term (current) use of anticoagulants

== ENCOUNTER 2019-10-29 13:10 | Inpatient (IN) | payer MEDICARE, BC ==
[~2019-10-29] VITALS: Ht 170.2 cm; Wt 120.3 kg
[~2019-10-29 13:10] MED LIST changes: +LANTUS PEN100 U/ML SQ; +RT SPIRIVA INH18 MCG IH; +SYMBICORT1 AE3 IH
[2019-10-29 13:22] VITALS: BP 150/55
[2019-10-29 14:03] VITALS: BP 138/63
[2019-10-29 18:21] VITALS: BP 159/80
[2019-10-29] MEDS ORDERED: NYSTATIN OINTME15 GM TP (21:25)
[2019-10-29] MEDS ORDERED: NYAMYC100000 U/G TP (21:29)
[2019-10-29 21:58] VITALS: BP 156/66
[2019-10-30 01:11] VITALS: BP 153/76
[2019-10-30 05:32] VITALS: BP 157/74
[2019-10-30 07:40] LABS: CALCIUM 8.6 mg/dL (8.3-10.5)
[2019-10-30 10:14] VITALS: BP 142/55
[2019-10-30 14:20] VITALS: BP 138/66
[2019-10-30 18:09] VITALS: BP 154/67
[2019-10-30 22:00] VITALS: BP 130/50
[2019-10-31 02:00] VITALS: BP 160/75
[2019-10-31 05:40] VITALS: BP 169/81
[2019-10-31 07:53] LABS: HEMATOCRIT 40.3 % (37.0-47.0); HEMOGLOBIN 12.8 g/dL (12.5-16.0); MEAN CELL VOLUME 96 fl (78-100); MEAN CORPUSCULAR HEMOGLOBIN 31 pg (27-31); MEAN CORPUSCULAR HGB CONC 32 g/dL (33-37); MEAN PLATELET VOLUME 11.3 fl (7.4-10.4); PLATELET COUNT 192 K/mm3 (130-400); RED CELL DISTRIBUTION WIDTH 13.6 % (11.5-14.5); WHITE BLOOD COUNT 9.7 K/mm3 (4.8-10.8)
[2019-10-31 08:26] LABS: LYMPHOCYTE 4 % (20-51); MONOCYTE 2 % (3-10); NEUTROPHILS 94 % (42-75)
[2019-10-31 08:30] LABS: POTASSIUM 4.7 mmol/L (3.5-5.1)
[2019-10-31 08:31] LABS: CALCIUM 8.7 mg/dL (8.3-10.5)
[2019-10-31 10:18] VITALS: BP 143/63
[2019-10-31 14:00] VITALS: BP 166/75
[2019-10-31 18:10] VITALS: BP 151/63
[2019-10-31 22:00] VITALS: BP 147/75
[2019-11-01 02:34] VITALS: BP 170/95
[2019-11-01 04:18] VITALS: BP 161/79
[2019-11-01 04:30] VITALS: BP 153/71
[2019-11-01 05:13] VITALS: BP 132/73
[2019-11-01 09:45] VITALS: BP 143/69
[2019-11-01] MEDS ORDERED: MIRAPEX0.5 MG PO (15:19)
[2019-11-01] MEDS ORDERED: ALBUTEROL2.5 MG/3 M IH (15:26)
[2019-11-01] MEDS ORDERED: SYMBICORT1 AE3 IH (15:27)
[2019-11-01] MEDS ORDERED: ACETAMINOPHEN-H1 TA2 PO (15:27)
[2019-11-01] MEDS ORDERED: [UNRECOGNIZED DRUG - OTHER] NS (15:28)
== END 2019-11-01 10:32 | disposition swing bed (61) | DRG 191 ==
LOC: MED/SURG 13:10
PROVIDERS: Physician Assistant; ADMIT Nurse Practitioner Primary Care
DX: J44.1 Chronic obstructive pulmonary disease with (acute) exacerbation (principal); I13.0 Hypertensive heart and chronic kidney disease with heart failure and stage 1 through stage 4 chronic kidney disease, or unspecified chronic kidney disease; J96.10 Chronic respiratory failure, unspecified whether with hypoxia or hypercapnia; I48.91 Unspecified atrial fibrillation; I50.9 Heart failure, unspecified; N18.9 Chronic kidney disease, unspecified; E11.51 Type 2 diabetes mellitus with diabetic peripheral angiopathy without gangrene; E11.65 Type 2 diabetes mellitus with hyperglycemia; Z66 Do not resuscitate; I25.10 Atherosclerotic heart disease of native coronary artery without angina pectoris; F32.9 Major depressive disorder, single episode, unspecified; F41.9 Anxiety disorder, unspecified; Z79.52 Long term (current) use of systemic steroids; Z79.1 Long term (current) use of non-steroidal anti-inflammatories (NSAID); Z79.4 Long term (current) use of insulin; Z96.652 Presence of left artificial knee joint; Z90.710 Acquired absence of both cervix and uterus; Z88.0 Allergy status to penicillin; Z88.2 Allergy status to sulfonamides
CPT/HCPCS: J1815; J1940; J2930

== ENCOUNTER 2019-11-01 10:32 | Inpatient (IN) | payer MEDICARE, BC ==
[~2019-11-01] VITALS: Ht 170.2 cm; Wt 118.3 kg
[~2019-11-01 10:32] MED LIST changes: +NYSTATIN OINTME15 GM TP
[2019-11-01 10:50] VITALS: BP 143/69
[2019-11-01 11:31] VITALS: BP 143/69
[2019-11-01] MEDS ORDERED: MIRAPEX0.5 MG PO (15:19)
[2019-11-01] MEDS ORDERED: ALBUTEROL2.5 MG/3 M IH (15:26)
[2019-11-01] MEDS ORDERED: SYMBICORT1 AE3 IH (15:27)
[2019-11-01] MEDS ORDERED: ACETAMINOPHEN-H1 TA2 PO (15:27)
[2019-11-01] MEDS ORDERED: [UNRECOGNIZED DRUG - OTHER] NS (15:28)
[2019-11-01 17:09] VITALS: BP 149/70
--- NOTE | 2019-11-01 21:15 | NUR ---
Patient sits up in recliner visiting on phone. Alert and oriented x 4. Denies pain. Has productive occasional couph with dk yellow thick sputum. Trilogy settings set up by Makeda NAPIER with trial run earlier. HS meds, insulin and breathing treatments all reviewed. Swallows meds without problems.
--- NOTE | 2019-11-01 21:58 | NUR ---
HR 80 AND SA02 97% DURING TREATMENT.
--- NOTE | 2019-11-01 22:00 | NUR ---
Patient given albuterol/atrovent br treatment and tolerated well. Takes snack of sugar free jello. Following second breathing treatment, patient brushes teeth and rinses mouth out. Is min 1 standby assist to and from the bathroom. Rested self back in bed.
--- NOTE | 2019-11-01 22:40 | NUR ---
Trilogy bipap applied with o2 2l.
--- NOTE | 2019-11-01 23:31 | NUR ---
Patient rests in bed with eyes closed. Trilogy bipap on.
--- NOTE | 2019-11-02 02:43 | NUR ---
Patient up to the bathroom around Q 2hours during the night to void and rests back in bed with trilogy on.
--- NOTE | 2019-11-02 03:00 | NUR ---
Patient states she wants a break from the trilogy and removed at this time. Reports mask made bridge of her nose sore.
--- NOTE | 2019-11-02 03:51 | NUR ---
Patients BP reads 174/95. Patient reports "I feel OK". Denies pain or needs.
[2019-11-02 05:12] VITALS: BP 174/95
[2019-11-02 05:19] VITALS: BP 174/95
[2019-11-02 05:44] VITALS: BP 174/95
--- NOTE | 2019-11-02 05:48 | NUR ---
Offered patient breathing treatment due to labored breathing with audible wheezing on way back from the bathroom. Once resting back in bed breathing less labored and stated she's feeling better. Albuterol treatment given. HR before 99 bpm and sao2 98% room air. Lung sounds clear on inspiration and rhonki on expiration. HR 94 and sao2 100% during treatment.
[2019-11-02 09:54] VITALS: BP 130/62
--- NOTE | 2019-11-02 10:50 | NUR ---
PT and OT both report patient with elevated heart rate of approximately 120-140 BPM during therapy sessions. Lavonne Lloyd OT reports that patient verbalized to her that she was concerned about her heart rate of 119 BPM because she was in A-Fib and cardioverted approximately one month ago. Patient states "I don't want my heart to get out of whack again." Jason Washington, TEACHER OF GIFTED STUDENTS notified.
[2019-11-02 12:03] VITALS: BP 147/76
--- NOTE | 2019-11-02 13:30 | NUR ---
Jason Washington APRN at bedside.
[2019-11-02 17:13] VITALS: BP 149/77
--- NOTE | 2019-11-02 20:00 | NUR ---
Report received from Kelly NAPIER. Up in recliner watching TV. A/O x4. Pleasant and cooperative. Denies pain. States had a pain in her chest earlier, rates 3/10 after she coughed. Subsided at this time. Assessment completed. Lungs coarse all garcia with some expiratory wheezes in bilateral lower lobes. HR irregular. 2+ edema to BLE from ankles to mid-shins. States feeling "much better then before. Uses I.S. and pulls 1000 ML x10 and uses flutter valve x10 reps. Denies further wants or needs at this time.
--- NOTE | 2019-11-02 22:00 | NUR ---
Assisted to BR and bed by CONTRACTING MANAGER. 1:1 assist, gait steady. Bilateral groin folds cleansed and dried. Desenex powder applied. Inner dry applied. Folds dry and cracked. No moisture noted. Trilogy applied at this time. Bed alarm on. Call light in reach.
--- NOTE | 2019-11-03 01:49 | NUR ---
Rests with Trilogy in place. Calls for assist to BR PRN. No signs of distress.
[2019-11-03 06:08] VITALS: BP 164/73
--- NOTE | 2019-11-03 06:28 | NUR ---
Rested well through the night. Up to BR PRN with SBA and walker. Denies pain. Wore Trilogy all shift without complaints.
--- NOTE | 2019-11-03 07:00 | NUR ---
report received from trang. Patient being assisted out of bed to chair with [employer] MAKEUP ARTIST.
--- NOTE | 2019-11-03 07:01 | NUR ---
Report to Sherry NAPIER.
[2019-11-03 16:39] VITALS: BP 135/73
--- NOTE | 2019-11-03 19:11 | NUR ---
REPORT GIVEN TO KARTHIKEYAN MANZANO
--- NOTE | 2019-11-03 19:45 | NUR ---
THIS NURSE CALLED RT TO VERIFY ORDER AND TIMING OF FOUR NEBULIZING MEDS AND ONE INHALER. RT COULD NOT ASSIST AND STATED IT MAY BE BETTER TO CALL PHARMACY. PHARMACY CALLED BY THIS NURSE BUT NO ANSWER. THIS NURSE TO PROVIDE HALF OF THE NEBULIZER AND INHALER MEDS AT 2100 MEDS AND THE REMAINDER BEFORE BED.
--- NOTE | 2019-11-03 20:30 | NUR ---
PATIENT ASSESSMENT COMPLETED. PATIENT SOB, PURSED-LIP BREATHING AND RR AT 26 BUT NOT IN DISTRESS. NO PAIN REPORTED. PATIENT SITTING UP IN CHAIR WITH FEET ELEVATED. 1/2 OF THE PRESCRIBED NEBULIZER TREATMENTS PRESCRIBED AT THIS TIME AND REMAINING TO BE PROVIDED LATER TO SPACE OUT TREATMENTS. PATIENT TOLERATED WELL AND SOB IMPROVED. LUNGS AUSCULATED EXP WHEEZES AND COARSENESS BEFORE AND AFTER TREATMENTS.
--- NOTE | 2019-11-03 22:15 | NUR ---
PATIENT PROVIDED OTHER NEB TREATMENTS, XOPENEX FIRST AND THEN GENTAMYACIN IN ITS OWN NEBULIZING MOUTH PIECE. PATIENT REPORTS FEELING CONSTIPATED AND UNABLE TO GO TO THE BATHROOM FOR 3 DAYS. MIRALAX PROVIDED IN WATER PER PATIENT REQUEST. VERBAL ORDER GIVEN PER [facility]ER[facility] BOCANEGRA FOR 17G OF MIRALAX DAILY, PRN AND COLACE 100MG DAILY. RT CALLED IN [facility] TO REQUEST ASSISTANCE WITH TRILOGY TO APPROPRIATELY SET SETTINGS FOR CPAP INSTEAD OF BIPAP PER DR. KEY'S ORDERS. RT STATED THAT THEY DO NOT USE TRILOGY MACHINES AND CANNOT ASSIST UNLESS THEY ARE HERE IN PERSON. MODE SET TO CPAP ON THE MACHINE AND O2 MONITORED AT 98%. PATIENT SLEEPING COMFORTABLY.
[2019-11-04 05:41] VITALS: BP 144/79
--- NOTE | 2019-11-04 07:20 | NUR ---
REPORT RECEIVED FROM JOSE JUAN NAPIER.
--- NOTE | 2019-11-04 07:29 | NUR ---
REPORT GIVEN TO HALIMA CASTILLO RN.
--- NOTE | 2019-11-04 09:30 | NUR ---
SITTING IN CHAIR. REPORTS FEELING SHORT OF BREATH THIS MORNING. RESP DO NOT APPEAR LABORED AT THIS TIME. 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 ABD DISTENDED WITH ACTIVE BOWEL SOUNDS X4 QUADS. PRN COLACE GIVEN THIS MORNING SINCE TODAY IS DAY 4 WITHOUT A BM. PATIENT DOES REPORT HAVING "THE START OF ONE" BEFORE BREAKFAST. DOES HAVE A CPAP MACHINE AT HOME, CURRENTLY USING TRILOGY MACHINE HERE CPAP. PERFORMS NEBULIZER TREATMENTS WITH APPROPRIATE DEEP BREATHS.
--- NOTE | 2019-11-04 13:40 | NUR ---
WASHED AND FIXED HAIR WITH OT. REPORTS COMPLETING ACTIVITY WITHOUT SHORTNESS OF BREATH ABOVE BASELINE. HAS NOTICED CONGESTION FEELS MORE LOCATED TO CHEST THAN UPPER THROAT.
--- NOTE | 2019-11-04 13:50 | NUR ---
NEBULIZER TREATMENTS COMPLETE. LUNGS AUSCULTATED- RHONCHI THROUGHOUT RT LUNG; EXPIRATORY WHEEZES TO LT LUNG.
--- NOTE | 2019-11-04 14:38 | NUR ---
SWALLOW STUDY COMPLETED. PER VOLODYMYR [place], PATIENT HAD TROUBLE MOVING PILL FROM FRONT OF TONGUE TO BACK. SUGGESTS USE OF APPLE SAUCE IF THIS HAPPENS IN THE FUTURE, BUT NOTES THE PILL THEY USE DURING THE STUDY IS CHALKY AND HARD TO MANIPULATE. OTHERWISE, NO NEW ORDERS.
[2019-11-04 17:47] VITALS: BP 138/76
--- NOTE | 2019-11-04 18:07 | NUR ---
[employer] STAFF MEMBER HERE TO FIT PATIENT FOR A NEW CPAP MASK.
--- NOTE | 2019-11-04 19:23 | NUR ---
REPORT PROVIDED TO JOSE JUAN NAPIER.
--- NOTE | 2019-11-04 20:30 | NUR ---
PATIENT ASSESSMENT COMPLETED. PATIENT HAS BLUE LIPS, SOB, COARSE LUNGS, AND RR 24. PATIENT PROVIDED NEBULIZER TX AND LUNGS STILL COARSE BUT NO LONGER SOB. PATIENT WAS NEVER DISTRESSED. PATIENT PROVIDED PATIENT MEDICATIONS. NO PAIN PRESENT.
--- NOTE | 2019-11-04 22:30 | NUR ---
PATIENT MASK FITTED TO FACE AND TRILOGY CPAP INITIATED. PATIENT COMFORTABLE AND READY TO SLEEP. HOB AT 20 DEGREES. SCDS ON.
[2019-11-05 06:01] VITALS: BP 134/69
--- NOTE | 2019-11-05 06:48 | NUR ---
PATIENT AWOKE THIS MORNING WITH BLADDER SPASMS. BREN GIANG APRN NOTIFIED. ORDER PLACED FOR UA TO BE DONE. MENTHOL COUGH DROPS ORDER PLACED TO ASSIST PATIENT WITH DRY THROAT AND MOUTH.
[2019-11-05 09:31] LABS: URINE APPEARANCE CLEAR; URINE COLOR YELLOW
[2019-11-05 09:32] LABS: URINE BILIRUBIN NEGATIVE (NEGATIVE); URINE BLOOD NEGATIVE (NEGATIVE); URINE GLUCOSE 50 mg/dL mg/dL (NEGATIVE); URINE KETONE NEGATIVE (NEGATIVE); URINE LEUKOCYTE ESTERASE TRACE (NEGATIVE); URINE NITRATE NEGATIVE (NEGATIVE); URINE PROTEIN(semi-quant) NEGATIVE (NEGATIVE); URINE UROBILINOGEN NORMAL (NORMAL); URINE WBC 16-30 /hpf (0-3)
--- NOTE | 2019-11-05 11:30 | NUR ---
The pt is resting in recliner chair at this time. Pt c/o left flank pain and "difficulty starting stream." Jason Washington is notified of these complaints. No new orders received at this time.
[2019-11-05 17:29] VITALS: BP 135/75
--- NOTE | 2019-11-05 18:45 | NUR ---
The pt is alert and oriented and sitting up in recliner chair. The pt c/o mild sob after walking to the restroom. The pt takes breathing treatment and states that she feels that she is better. Will continue to monitor.
--- NOTE | 2019-11-05 20:15 | NUR ---
Dr. Martinez notified of patient blood sugar of 470 and to give SSI 12 units as ordered for sliding scale-no lab draw order. HS meds and inhalers all reviewed along with norco for flank pain. Home cpap set up for patient by nurse with 02 2.5 liters bleedin per patient.
--- NOTE | 2019-11-05 22:30 | NUR ---
Reports pain level improved now just 06/04.
--- NOTE | 2019-11-05 22:30 | NUR ---
CPAP applied and at 2300 o2 spot checked 94% with 02 2.5l bleed in.
--- NOTE | 2019-11-05 23:00 | NUR ---
ACCU CHECK 282 AT THIS TIME.
--- NOTE | 2019-11-06 01:35 | NUR ---
Patient rests with eyes closed. CPAP on.
--- NOTE | 2019-11-06 05:00 | NUR ---
Patients lower lip blueish in color this am but denies complaints of. sa02 90-91% with cpap on 2.5 L bleed in. Spot check done at 2300 last night and sao2 was 94% with cpap. O2 monitor applied at this time and sao2 96% with cpap on. Nurse adjusts the straps tighter for did have some air leakage.
--- NOTE | 2019-11-06 05:15 | NUR ---
Patient reports she slept through the night.
[2019-11-06 05:59] VITALS: BP 132/71
--- NOTE | 2019-11-06 06:38 | NUR ---
Patient rests with eyes closed. Sa02 95% on 2l bleed in cpap. HR 82.
--- NOTE | 2019-11-06 09:51 | NUR ---
Report received from Antonette NAPIER. Patient is alert and oriented sitting in bedside chair. Assessment is complete. Breathing is even and labored at rest, she has a unproductive cough. C/O left flank pain, PRN pain medication given. She has no IV site. Will continue to monitor
--- NOTE | 2019-11-06 12:26 | NUR ---
Patient is sitting in bed. She states her pain and nausea have improved. Educated the patient on the PRN pain medication. Patient continues clear liquid diet, reports no BM but is passing gas. Will continue to monitor.
[2019-11-06 17:21] VITALS: BP 128/66
--- NOTE | 2019-11-06 18:04 | NUR ---
Patient is ambilating in halls with staff. She continues to have unproductive cough through out the shift. Upper lobes wheezing improves following breathing treatments, lower lobes exp wheezing and some crackles. Will continue to monitor.
--- NOTE | 2019-11-06 23:42 | NUR ---
1906 This RN assumed care of patient. Patient up to bathroom with 1 assist and walke. Patient reports she feels a little increased SOB with ambulation but over all feels a bit better. Audible course upper respiratory sound noted. Patient denies pain at this time, returned to recliner and legs elivated. Chair alarm in place and call light within reach. 2140 HS medication given. FSBS 368 10unit novolog given per sliding scale. Scheduled levemir 20units given. Prenebulizer assessment expiratory wheezes noted in upper lobes and lower lobes course. Staged administration of Nebulizers completed and post auscultation slight improvement noted. Oral care performed by patient with mouth wash. Patient denies pain pain or discomfort at this time. Reporst slight improvement with breathing treatments, still reports over all feels as though she is improving. Assisted patient with placement of CPAP with 2L oxygen. Call light within reach. Will continue to monitor. 2342 Patient resting quietly in bed. Appears in no distress. unlabored breathing, CPAP remains in place. Patient repositioned self without difficulty. Call light remains in place.
[2019-11-07 06:17] VITALS: BP 129/70
--- NOTE | 2019-11-07 07:10 | NUR ---
REPORT RECEIVED FROM KARTHIKEYAN STARR
--- NOTE | 2019-11-07 08:00 | NUR ---
Patient starting her breathing treatments now due to increased short of air complaints. Patient did not appear to be in distress but reports dyspnea. Patient states she is feeling okay otherwise. Patient is dressed and up to chair.
--- NOTE | 2019-11-07 09:36 | NUR ---
Patient reporting she is having a hard time breathing today. Lung sounds have not changed this am; remains coarse with wheezing. All breathing treatments have been given. Patient's skin color is normal and lips have pink tinged with slight blue noted; which is the same as I assessed on . Patient asking if humid outside because that usually causes her issues too. Patient reading a book sitting in the chair with TV off and lights on. Call light within reach. Denies further questions or assist.
--- NOTE | 2019-11-07 13:40 | NUR ---
PATIENT RESTING IN CHAIR READING A BOOK. PATIENT ABLE TO COMPLETE BREATHING TREATMENTS WITHOUT DIFFICULTY. PATIENT DOES REPORT SHE IS COUGHING STUFF UP FINALLY AND DOES FEEL LIKE IT IS EASIER TO BREATHE. CONTINUES TO HAVE AUDIBLE WHEEZING AND CONGESTION. PATIENT IS CALM AND COOPERATIVE. REPORTS SHE HAS SOMETHING IN THE BACK OF HER THROAT. UNABLE TO VISUALIZE ANY THRUSH BUT SHE REPORTS THAT IS WHAT IT FEELS LIKE; THICK COAT AND POINTS TO MID NECK. PROVIDER UPDATED AND MEDICATION ORDER PLACED IN EMAR.
[2019-11-07 18:12] VITALS: BP 162/75
[2019-11-08 05:56] VITALS: BP 133/81
[2019-11-08 14:02] LABS: CALCIUM 9.4 mg/dL (8.3-10.5)
[2019-11-08 15:08] LABS: HEMATOCRIT 45.4 % (37.0-47.0); HEMOGLOBIN 14.6 g/dL (12.5-16.0); MEAN CELL VOLUME 97 fl (78-100); MEAN CORPUSCULAR HEMOGLOBIN 31 pg (27-31); MEAN CORPUSCULAR HGB CONC 32 g/dL (33-37); MEAN PLATELET VOLUME 11.5 fl (7.4-10.4); PLATELET COUNT 171 K/mm3 (130-400); RED BLOOD COUNT 4.68 M/mm3 (4.10-5.30); RED CELL DISTRIBUTION WIDTH 14.6 % (11.5-14.5); WHITE BLOOD COUNT 18.1 K/mm3 (4.8-10.8)
[2019-11-08 15:54] LABS: LYMPHOCYTE 15 % (20-51); MONOCYTE 5 % (3-10); NEUTROPHILS 79 % (42-75)
[2019-11-08 17:09] VITALS: BP 137/63
--- NOTE | 2019-11-08 19:10 | NUR ---
Report received from Kelly NAPIER.
--- NOTE | 2019-11-08 20:30 | NUR ---
Klaudia BURCH notified of patients blood sugar 467. No lab draw ordered and to give SSI 12 units. HS meds along with insulin all reviewed and given. Patient denies pain at this time. Has audible wheezing and labored breathing couph non-productive at this time but states was productive earlier during the day.
--- NOTE | 2019-11-08 21:30 | NUR ---
Patient up to the bathroom following breathing treatments and does good mouth care. Alert and oriented x 4. Less winded and states breathing improved following breathing treatment. Undresses and dresses self for HS. Rests back in bed and assisted to set up home cpap with 2l bleed in of 02.
--- NOTE | 2019-11-09 02:30 | NUR ---
Patient just returned from the bathroom. Denies pain. States has had frequent awakenings "just things on my mind tonight".
--- NOTE | 2019-11-09 05:18 | NUR ---
Patient returned from the bathroom and resting in bed with cpap on.Denies needs. Med reviewed and given.
[2019-11-09 05:22] VITALS: BP 131/72
--- NOTE | 2019-11-09 11:00 | NUR ---
Jason Washington APRN called patient's son Ly Crow per patient request to update him on patient condition and plan of care.
--- NOTE | 2019-11-09 14:43 | NUR ---
Met with pt to discuss potential discharge for this . BIPA form discussed and pt signed. Pt denies any questions regarding the form and her rights. Called and spoke with Emilia at [facility]. They are able to resume care for pt at discharge. Nursing to fax Discharge Summary. . Pt also requested this CM contact [facility], who provide private duty care to pt. She would like them to resume care next week. Called and spoke with Hanna, and they will be able to come out on the . If pt needs to change this date, she may call. Called [facility] and spoke with Dana. Informed her that pt would be discharged on and that she would like to resume her Meals on Wheels. Dana verbalized understanding and will let the [place] architecture manager know.
[2019-11-09 16:58] VITALS: BP 116/56
--- NOTE | 2019-11-09 19:10 | NUR ---
Report received from Kelly NAPIER.
--- NOTE | 2019-11-09 20:15 | NUR ---
HS meds all reviewed along with breathing treatments and given. Patients respirations unlabored prior to nurse entering room but 28 breaths/minute with audible and auscultated expiratory wheezing when nurse into assess and give meds. Following breathing treatments lung sounds with rhonki, HR 104. Patient up to the bathroom and nurse noted inner buttucks redness/cleaned with bath wipe, patted dry and nystatin powder applied. Patient undresses self for HS and changes, changes into clean pullup and does good mouth care at sink. Rests self back in bed. Denies pain. CPAP applied with 2l bleed in o2. Accu check 305 and scheduled levimier and novolog SSI given SQ.
--- NOTE | 2019-11-10 03:00 | NUR ---
Patient resting with eyes closed. CPAP on.
--- NOTE | 2019-11-10 05:32 | NUR ---
Patient reports she slept well this NOC.
[2019-11-10 05:38] VITALS: BP 110/68
--- NOTE | 2019-11-10 08:00 | NUR ---
Dr. Pedro at bedside.
--- NOTE | 2019-11-10 14:45 | NUR ---
Message left with Dr. Samano's nurse regarding scheduling a follow up appointment sooner than currently scheduled on 12/31/19 @ 3287
--- NOTE | 2019-11-10 15:00 | NUR ---
Patient called this nurse into the room. States "I'm scared to go home tomorrow if I cant't see Dr. Samano until December." Patient also states "I won't make it, I'll be right back in here." Message left on phone of Dr. Fragoso nurse to return call. Dr. Pedro notified of patient's concerns.
[2019-11-10 15:28] VITALS: BP 121/72
--- NOTE | 2019-11-10 15:40 | NUR ---
Follow up appointment with Dr. Samano 12/31/[address] Hyman 11/25/19 @ 1400. Will need to schedule with Dr. Pedro.
[2019-11-10 17:03] VITALS: BP 126/68
--- NOTE | 2019-11-10 21:10 | NUR ---
Patient resting in bed awake and alert. States breathing is fine at this time. HS meds along with RT treatments all reviewed and given. Had exp/insp wheezing prior to treatments and rhonki following treatment. HR 96. Patient does good mouth care and rests back in bed. CPAP on with o2 2l bleed in.
--- NOTE | 2019-11-11 01:00 | NUR ---
Patient resting with eyes closed until this time. Up to the bathroom and back to bed. CPAP reapplied. Denies pain.
--- NOTE | 2019-11-11 05:24 | NUR ---
Patient has been resting in bed. CPAP on.
[2019-11-11 05:38] VITALS: BP 157/81
--- NOTE | 2019-11-11 06:55 | NUR ---
REPORT RECEIVED FROM BERRY NAPIER.
--- NOTE | 2019-11-11 07:50 | NUR ---
AWAKE AND SITTING IN CHAIR. FEELS GOOD ABOUT DISCHARGING HOME TODAY. SON RECENTLY RETIRED AND WILL BE AVAILABLE TO TRANSPORT HOME. C/O CONSTIPATION YESTERDAY AND DISCUSS THIS WITH PATIENT. SHE DOES NOT FEEL THE NEED FOR PRN COLACE TODAY, STATES "I WILL WORRY ABOUT IT WHEN I GET HOME." LOOSE COUGH NOTED. ABD FEELS TIGHT AND SLIGHTLY DISTENDED; PATIENT DENIES FEELING BLOATED. BOWEL SOUNDS ACTIVE X4 QUADS. 1+ PITTING EDEMA TO BILAT LE.
--- NOTE | 2019-11-11 08:55 | NUR ---
WOULD LIKE TO DISCHARGE AFTER LUNCH. BELIEVES THAT WILL BE EASIER SHE WILL NOT HAVE TO WORRY ABOUT MAKING A MEAL RIGHT AWAY.
--- NOTE | 2019-11-11 09:47 | NUR ---
CONTACT OFFICE OF DR KEY. UNABLE TO SCHEDULE PATIENT FOR AN EARLIER APPT. SCHEDULED ON December AT 0930. APPT SET WITH DR GAY FOR October AT 1100.
--- NOTE | 2019-11-11 10:04 | NUR ---
TEENA FROM DR KEY'S OFFICE CALLS. APPOINTMENT FOR PATIENT SET FOR October AT 1500. THEREFORE, APPOINTMENT WITH DR GAY MOVED TO October AT 11AM.
[2019-11-11] MEDS ORDERED: LEVAQUIN 750MG750 M1 PO (10:30)
[2019-11-11] MEDS ORDERED: CARDIZEM CD120 M1 PO (10:31)
--- NOTE | 2019-11-11 11:30 | NUR ---
REPORT PROVIDED TO JENNA NAPIER.
--- NOTE | 2019-11-11 13:35 | NUR ---
THE PT IS DISCHARGED HOME. THE PT LEAVES VIA POV WITH HER SON. THE PT IS ALERT AND ORIENTED AND VSS. THE PT IS PROVIDED WITH DISCHARGE INSTRUCTION AND EDUCATION AND DENIES ANY QUESTIONS OR CONCERNS AT THIS TIME. THE PT VERBALIZES UNDERSTANDING OF INSTRUCTIONS AND EDUCATION. THE PT LEAVES UNIT WITH ALL PERSONAL BELONGINGS IN HAND.
== END 2019-11-11 13:35 | disposition home or self-care (01) | DRG 948 ==
LOC: MED/SURG 10:32
PROVIDERS: Nurse Practitioner; ADMIT Nurse Practitioner Primary Care
DX: R53.81 Other malaise (principal); J44.1 Chronic obstructive pulmonary disease with (acute) exacerbation; I13.0 Hypertensive heart and chronic kidney disease with heart failure and stage 1 through stage 4 chronic kidney disease, or unspecified chronic kidney disease; J96.10 Chronic respiratory failure, unspecified whether with hypoxia or hypercapnia; F41.9 Anxiety disorder, unspecified; I50.9 Heart failure, unspecified; I48.0 Paroxysmal atrial fibrillation; N18.9 Chronic kidney disease, unspecified; Z66 Do not resuscitate; E11.51 Type 2 diabetes mellitus with diabetic peripheral angiopathy without gangrene; Z79.52 Long term (current) use of systemic steroids; Z79.4 Long term (current) use of insulin; Z79.01 Long term (current) use of anticoagulants; Z96.652 Presence of left artificial knee joint; Z90.710 Acquired absence of both cervix and uterus; Z88.0 Allergy status to penicillin; Z88.2 Allergy status to sulfonamides; Z88.8 Allergy status to other drugs, medicaments and biological substances
CPT/HCPCS: A4618; J1580; J1815; J2930; J7512

== ENCOUNTER → 2019-11-15 | Outpatient (CLI) | payer MEDICARE, BC ==
[2019-11-11 05:38] VITALS: BP 157/81
[~2019-11-15] MED LIST changes: +CARDIZEM CD120 M1 PO; +MIRAPEX0.5 MG PO; +[UNRECOGNIZED DRUG - OTHER] NS
[2019-11-15 17:53] LABS: PH-URINE 6.5 (5.0 - 8.0); URINE APPEARANCE CLEAR; URINE BILIRUBIN NEGATIVE (NEGATIVE); URINE BLOOD NEGATIVE (NEGATIVE); URINE COLOR YELLOW; URINE GLUCOSE 50 mg/dL mg/dL (NEGATIVE); URINE KETONE NEGATIVE (NEGATIVE); URINE LEUKOCYTE ESTERASE NEGATIVE (NEGATIVE); URINE NITRATE NEGATIVE (NEGATIVE); URINE PROTEIN(semi-quant) NEGATIVE (NEGATIVE); URINE UROBILINOGEN NORMAL (NORMAL)
== END ==
LOC: LAB 17:31
PROVIDERS: Family Medicine
DX: N19 Unspecified kidney failure (principal); N39.0 Urinary tract infection, site not specified; R60.0 Localized edema

== ENCOUNTER → 2019-11-26 | Outpatient (CLI) | payer MEDICARE, BC ==
[2019-11-11 05:38] VITALS: BP 157/81
[2019-11-26 11:27] LABS: EOS # 0.1 (0.04-0.40); EOS % 2.2 % (1.0-5.0); HEMATOCRIT 39.2 % (37.0-47.0); HEMOGLOBIN 12.2 g/dL (12.5-16.0); LYMPH# 0.9 (1.50-4.00); MEAN CELL VOLUME 98 fl (78-100); MEAN CORPUSCULAR HEMOGLOBIN 31 pg (27-31); MEAN CORPUSCULAR HGB CONC 31 g/dL (33-37); MEAN PLATELET VOLUME 9.7 fl (7.4-10.4); MONO # 0.4 (0.20-0.80); NEU # 3.2 (1.40-6.50); PLATELET COUNT 233 K/mm3 (130-400); RED BLOOD COUNT 3.99 M/mm3 (4.10-5.30); RED CELL DISTRIBUTION WIDTH 15.2 % (11.5-14.5); WHITE BLOOD COUNT 4.5 K/mm3 (4.8-10.8)
[2019-11-26 11:31] LABS: POTASSIUM 3.8 mmol/L (3.5-5.1)
[2019-11-26 11:32] LABS: CALCIUM 9.8 mg/dL (8.3-10.5)
== END ==
LOC: LAB 11:01
PROVIDERS: Family Medicine
DX: E11.22 Type 2 diabetes mellitus with diabetic chronic kidney disease (principal); N18.3 Chronic kidney disease, stage 3 (moderate); R60.0 Localized edema

== ENCOUNTER → 2019-12-17 | Outpatient (CLI) | payer MEDICARE, BC ==
[~2019-12-17] VITALS: Ht 170.2 cm; Wt 118.3 kg
[2019-12-17 14:53] LABS: POTASSIUM 3.3 mmol/L (3.5-5.1)
[2019-12-17 14:54] LABS: CALCIUM 9.9 mg/dL (8.3-10.5)
[2019-12-17 15:15] VITALS: BP 146/76
[2019-12-17 17:15] VITALS: BP 122/60
[2019-12-17 17:35] VITALS: BP 132/55
--- NOTE | 2019-12-17 17:38 | NUR ---
DR GAY NOTIFIED/UPDATED AND HE ASKED FOR PATIENT TO COME BACK TO OFFICE FOR FOLLOW UP.
== END ==
LOC: LAB 14:19
PROVIDERS: Family Medicine
DX: I95.1 Orthostatic hypotension (principal); I50.9 Heart failure, unspecified; R00.0 Tachycardia, unspecified
CPT/HCPCS: J7030

== ENCOUNTER → 2019-12-23 | Outpatient (CLI) | payer MEDICARE, BC ==
[2019-12-17 17:35] VITALS: BP 132/55
[2019-12-23 12:03] LABS: POTASSIUM 3.1 mmol/L (3.5-5.1)
[2019-12-23 12:04] LABS: CALCIUM 10.6 mg/dL (8.3-10.5)
== END ==
LOC: LAB 11:42
PROVIDERS: Family Medicine
DX: I50.9 Heart failure, unspecified (principal); N18.3 Chronic kidney disease, stage 3 (moderate)

== ENCOUNTER → 2019-12-31 | Outpatient (CLI) | payer MEDICARE, BC ==
[2019-12-17 17:35] VITALS: BP 132/55
[2019-12-31 14:39] LABS: POTASSIUM 3.3 mmol/L (3.5-5.1)
[2019-12-31 14:40] LABS: CALCIUM 9.3 mg/dL (8.3-10.5)
== END ==
LOC: LAB 14:17
PROVIDERS: Family Medicine
DX: I48.91 Unspecified atrial fibrillation (principal); N18.3 Chronic kidney disease, stage 3 (moderate); I50.9 Heart failure, unspecified

== ENCOUNTER 2020-02-07 14:10 | Observation (INO) | payer MEDICARE, BC ==
[~2020-02-07] VITALS: Ht 170.2 cm; Wt 126.3 kg
[2020-02-07 14:57] LABS: HEMOGLOBIN 11.1 g/dL (12.5-16.0); MEAN CELL VOLUME 100 fl (78-100); MEAN CORPUSCULAR HEMOGLOBIN 31 pg (27-31); MEAN CORPUSCULAR HGB CONC 31 g/dL (33-37); MEAN PLATELET VOLUME 11.2 fl (7.4-10.4); PLATELET COUNT 191 K/mm3 (130-400); RED BLOOD COUNT 3.59 M/mm3 (4.10-5.30); RED CELL DISTRIBUTION WIDTH 13.7 % (11.5-14.5); WHITE BLOOD COUNT 7.8 K/mm3 (4.8-10.8)
[2020-02-07 15:06] LABS: ALBUMIN 3.8 g/dL (3.4-4.8); SODIUM 138 mmol/L (136-145)
[2020-02-07 15:07] LABS: CALCIUM 9.1 mg/dL (8.3-10.5)
[2020-02-07 15:08] LABS: TOTAL PROTEIN 6.5 g/dL (6.2-8.1)
[2020-02-07 15:09] LABS: CARBON DIOXIDE 22 mmol/L (23-31)
[2020-02-07 15:10] LABS: TOTAL BILIRUBIN 0.4 mg/dL (0.2-1.2)
[2020-02-07 15:13] LABS: AST-SGOT 15 U/L (5-34)
[2020-02-07 15:15] LABS: ALT/SGPT 29 U/L (0-55); LYMPHOCYTE 6 % (20-51); MONOCYTE 2 % (3-10); NEUTROPHILS 92 % (42-75)
[2020-02-07 15:20] LABS: GLUCOSE 430 mg/dL (65-105)
[2020-02-07 15:23] LABS: TROPONIN-I < 0.03 ng/mL (<0.030)
[2020-02-07 15:42] LABS: URINE COLOR YELLOW
[2020-02-07 15:43] LABS: URINE APPEARANCE CLOUDY; URINE BILIRUBIN NEGATIVE (NEGATIVE); URINE BLOOD NEGATIVE (NEGATIVE); URINE KETONE NEGATIVE (NEGATIVE); URINE LEUKOCYTE ESTERASE 1+ (NEGATIVE); URINE NITRATE NEGATIVE (NEGATIVE); URINE PROTEIN(semi-quant) TRACE mg/dL (NEGATIVE); URINE UROBILINOGEN NORMAL (NORMAL)
[2020-02-07 18:10] VITALS: BP 149/75
[2020-02-07 18:37] VITALS: BP 149/75
[2020-02-07] MEDS ORDERED: FEOSOL325 MG PO (19:27)
[2020-02-07] MEDS ORDERED: ELIQUIS2.5 MG PO (19:31)
[2020-02-07] MEDS ORDERED: CEFDINIR300 MG PO (19:34)
[2020-02-07] MEDS ORDERED: AMIODARONE200 MG PO (19:34)
[2020-02-07 21:44] VITALS: BP 132/76
[2020-02-08 02:02] VITALS: BP 136/80
[2020-02-08 05:45] VITALS: BP 117/72
[2020-02-08 07:48] LABS: ALBUMIN 3.9 g/dL (3.4-4.8)
[2020-02-08 07:49] LABS: POTASSIUM 4.5 mmol/L (3.5-5.1)
[2020-02-08 07:51] LABS: TOTAL PROTEIN 6.7 g/dL (6.2-8.1)
[2020-02-08 07:53] LABS: TOTAL BILIRUBIN 0.5 mg/dL (0.2-1.2)
[2020-02-08 07:59] LABS: HEMATOCRIT 37.5 % (37.0-47.0); HEMOGLOBIN 11.5 g/dL (12.5-16.0); MEAN CELL VOLUME 101 fl (78-100); MEAN CORPUSCULAR HEMOGLOBIN 31 pg (27-31); MEAN CORPUSCULAR HGB CONC 31 g/dL (33-37); MEAN PLATELET VOLUME 11.4 fl (7.4-10.4); PLATELET COUNT 177 K/mm3 (130-400); RED BLOOD COUNT 3.73 M/mm3 (4.10-5.30); RED CELL DISTRIBUTION WIDTH 13.7 % (11.5-14.5); WHITE BLOOD COUNT 4.8 K/mm3 (4.8-10.8)
[2020-02-08 08:02] LABS: LYMPHOCYTE 8 % (20-51); MONOCYTE 2 % (3-10); NEUTROPHILS 90 % (42-75); OVALOCYTES 1+
[2020-02-08 09:26] VITALS: BP 136/72
[2020-02-08 13:58] VITALS: BP 136/69
[2020-02-08 16:47] VITALS: BP 131/66
[2020-02-08 21:29] VITALS: BP 119/69
[2020-02-09 02:05] VITALS: BP 134/72
[2020-02-09 05:43] VITALS: BP 142/75
[2020-02-09 05:54] LABS: HEMATOCRIT 37.2 % (37.0-47.0); HEMOGLOBIN 11.2 g/dL (12.5-16.0); MEAN CELL VOLUME 101 fl (78-100); MEAN CORPUSCULAR HEMOGLOBIN 30 pg (27-31); MEAN CORPUSCULAR HGB CONC 30 g/dL (33-37); MEAN PLATELET VOLUME 11.3 fl (7.4-10.4); PLATELET COUNT 187 K/mm3 (130-400); RED BLOOD COUNT 3.68 M/mm3 (4.10-5.30); RED CELL DISTRIBUTION WIDTH 13.7 % (11.5-14.5); WHITE BLOOD COUNT 7.4 K/mm3 (4.8-10.8)
[2020-02-09 06:00] LABS: POTASSIUM 4.7 mmol/L (3.5-5.1)
[2020-02-09 06:37] LABS: LYMPHOCYTE 6 % (20-51); NEUTROPHILS 84 % (42-75)
[2020-02-09 06:38] LABS: MONOCYTE 10 % (3-10); OVALOCYTES 1+
[2020-02-09 10:03] VITALS: BP 144/73
== END 2020-02-09 10:35 | disposition other institution (70) ==
LOC: ED 14:10 → MED/SURG 18:11
PROVIDERS: Nurse Practitioner Family; ADMIT Nurse Practitioner
DX: R06.02 Shortness of breath (principal); F32.9 Major depressive disorder, single episode, unspecified; F41.9 Anxiety disorder, unspecified; I13.0 Hypertensive heart and chronic kidney disease with heart failure and stage 1 through stage 4 chronic kidney disease, or unspecified chronic kidney disease; I50.9 Heart failure, unspecified; I25.10 Atherosclerotic heart disease of native coronary artery without angina pectoris; I48.91 Unspecified atrial fibrillation; E11.51 Type 2 diabetes mellitus with diabetic peripheral angiopathy without gangrene; E11.22 Type 2 diabetes mellitus with diabetic chronic kidney disease; N18.9 Chronic kidney disease, unspecified; Z90.710 Acquired absence of both cervix and uterus; Z96.652 Presence of left artificial knee joint; Z79.4 Long term (current) use of insulin; Z79.01 Long term (current) use of anticoagulants; Z88.0 Allergy status to penicillin; Z88.2 Allergy status to sulfonamides; Z88.8 Allergy status to other drugs, medicaments and biological substances; E11.65 Type 2 diabetes mellitus with hyperglycemia; Z79.52 Long term (current) use of systemic steroids; J44.1 Chronic obstructive pulmonary disease with (acute) exacerbation
CPT/HCPCS: G0378; J0696; J1815; J1940; J2930

== ENCOUNTER 2020-02-11 10:23 | Inpatient (IN) | payer MEDICARE, BC ==
[~2020-02-11] VITALS: Ht 165.1 cm; Wt 123.0 kg
[~2020-02-11 10:23] MED LIST changes: +AMIODARONE200 MG PO; +CEFDINIR300 MG PO; +ELIQUIS2.5 MG PO; +FEOSOL325 MG PO
[2020-02-11 10:56] VITALS: BP 146/79
[2020-02-11 12:13] VITALS: BP 146/79
[2020-02-11 17:38] VITALS: BP 146/108
[2020-02-12 05:43] VITALS: BP 150/75
[2020-02-12 17:51] VITALS: BP 153/80
[2020-02-13 05:43] VITALS: BP 128/77
[2020-02-13 08:46] LABS: POTASSIUM 3.9 mmol/L (3.5-5.1)
[2020-02-13 08:47] LABS: CALCIUM 8.5 mg/dL (8.3-10.5)
[2020-02-13 18:00] VITALS: BP 131/75
[2020-02-14 05:22] VITALS: BP 160/82
[2020-02-14 17:35] VITALS: BP 146/71
[2020-02-15 05:23] VITALS: BP 146/75
[2020-02-15 17:14] VITALS: BP 142/72
[2020-02-16 05:48] VITALS: BP 145/73
[2020-02-16 18:02] VITALS: BP 147/71
[2020-02-17 05:38] VITALS: BP 135/79
[2020-02-17 17:10] VITALS: BP 157/77
[2020-02-18 05:47] VITALS: BP 116/67
[2020-02-18 16:56] VITALS: BP 127/61
[2020-02-19 05:49] VITALS: BP 148/72
[2020-02-19 18:00] VITALS: BP 161/73
[2020-02-20 05:26] VITALS: BP 176/83
[2020-02-20 17:33] VITALS: BP 159/73
[2020-02-21 05:24] VITALS: BP 137/76
[2020-02-21 17:31] VITALS: BP 167/94
[2020-02-22 05:22] VITALS: BP 125/72
[2020-02-22] MEDS ORDERED: NYSTATIN UD5 ML/CUP PO (09:45)
[2020-02-22] MEDS ORDERED: PREDNISONE10 MG PO (09:51)
[2020-02-22] MEDS ORDERED: LANTUS PEN100 U/ML SQ (10:05)
[2020-02-22] MEDS ORDERED: LANTUS SOLOS100 U/ML SQ (10:07)
[2020-03-05] MEDS ORDERED: LANTUS PEN100 U/ML SQ (20:17)
[2020-03-05] MEDS ORDERED: GENTAMICIN I40 MG/ML INH (20:24)
[2020-03-05] MEDS ORDERED: METFORMIN HCL500 M2 PO (22:23)
== END 2020-02-22 12:25 | disposition home health service (06) | DRG 948 ==
LOC: MED/SURG 10:23
PROVIDERS: ADMIT Physician Assistant
DX: R53.81 Other malaise (principal); J44.1 Chronic obstructive pulmonary disease with (acute) exacerbation; I50.9 Heart failure, unspecified; F41.9 Anxiety disorder, unspecified; I25.10 Atherosclerotic heart disease of native coronary artery without angina pectoris; E11.51 Type 2 diabetes mellitus with diabetic peripheral angiopathy without gangrene; E11.22 Type 2 diabetes mellitus with diabetic chronic kidney disease; E11.65 Type 2 diabetes mellitus with hyperglycemia; N18.9 Chronic kidney disease, unspecified; I48.91 Unspecified atrial fibrillation; F32.9 Major depressive disorder, single episode, unspecified; Z79.4 Long term (current) use of insulin; Z79.891 Long term (current) use of opiate analgesic; Z96.652 Presence of left artificial knee joint; Z90.710 Acquired absence of both cervix and uterus; Z88.0 Allergy status to penicillin; Z88.2 Allergy status to sulfonamides; Z88.5 Allergy status to narcotic agent
CPT/HCPCS: J1815; J1940; J2930; J7512

== ENCOUNTER → 2020-03-01 | Outpatient (CLI) | payer MEDICARE, BC ==
[2020-02-22 05:22] VITALS: BP 125/72
[~2020-03-01] MED LIST changes: +NYSTATIN UD5 ML/CUP PO
[2020-03-01 12:18] LABS: POTASSIUM 3.4 mmol/L (3.5-5.1)
[2020-03-01 12:19] LABS: CALCIUM 9.5 mg/dL (8.3-10.5)
== END ==
LOC: LAB 11:54
PROVIDERS: Family Medicine
DX: N18.30 Chronic kidney disease, stage 3 unspecified (principal)

== ENCOUNTER → 2020-03-08 | Outpatient (CLI) | payer MEDICARE, BC ==
[2020-03-05 22:55] VITALS: BP 146/62
[~2020-03-08] MED LIST changes: +GENTAMICIN I40 MG/ML INH; +METFORMIN HCL500 M2 PO
[2020-03-08 13:21] LABS: POTASSIUM 4.1 mmol/L (3.5-5.1)
[2020-03-08 13:22] LABS: CALCIUM 9.5 mg/dL (8.3-10.5)
== END ==
LOC: LAB 13:04
PROVIDERS: Family Medicine
DX: Z51.81 Encounter for therapeutic drug level monitoring (principal); Z79.84 Long term (current) use of oral hypoglycemic drugs

== ENCOUNTER → 2020-03-17 | Outpatient (CLI) | payer MEDICARE, BC ==
[2020-03-05 22:55] VITALS: BP 146/62
[2020-03-17 11:39] LABS: ALBUMIN 3.6 g/dL (3.4-4.8)
[2020-03-17 11:40] LABS: POTASSIUM 3.9 mmol/L (3.5-5.1)
[2020-03-17 11:42] LABS: TOTAL PROTEIN 5.6 g/dL (6.2-8.1)
[2020-03-17 11:44] LABS: TOTAL BILIRUBIN 0.6 mg/dL (0.2-1.2)
== END ==
LOC: LAB 10:31
PROVIDERS: Physician Assistant
DX: R06.02 Shortness of breath (principal)

== ENCOUNTER → 2020-04-10 | Outpatient (CLI) | payer MEDICARE, BC ==
[2020-03-05 22:55] VITALS: BP 146/62
[2020-04-10 15:26] LABS: POTASSIUM 3.8 mmol/L (3.5-5.1)
[2020-04-10 15:27] LABS: CALCIUM 9.2 mg/dL (8.3-10.5)
== END ==
LOC: LAB 15:02
PROVIDERS: Family Medicine
DX: E11.9 Type 2 diabetes mellitus without complications (principal); N18.30 Chronic kidney disease, stage 3 unspecified

== ENCOUNTER 2020-04-11 19:24 | Observation (INO) | payer MEDICARE, BC ==
[~2020-04-11] VITALS: Ht 170.2 cm; Wt 126.1 kg
[2020-04-11] MEDS ORDERED: BUMETANIDE2 M1 PO (19:34)
[2020-04-11 19:53] LABS: EOS # 0.2 (0.04-0.40); EOS % 2.2 % (1.0-5.0); HEMATOCRIT 39.4 % (37.0-47.0); HEMOGLOBIN 12.3 g/dL (12.5-16.0); LYMPH# 1.5 (1.50-4.00); MEAN CELL VOLUME 98 fl (78-100); MEAN CORPUSCULAR HEMOGLOBIN 30 pg (27-31); MEAN CORPUSCULAR HGB CONC 31 g/dL (33-37); MEAN PLATELET VOLUME 10.6 fl (7.4-10.4); MONO # 0.7 (0.20-0.80); PLATELET COUNT 209 K/mm3 (130-400); RED BLOOD COUNT 4.04 M/mm3 (4.10-5.30); RED CELL DISTRIBUTION WIDTH 15.9 % (11.5-14.5); WHITE BLOOD COUNT 7.4 K/mm3 (4.8-10.8)
[2020-04-11 20:04] LABS: ALBUMIN 3.9 g/dL (3.4-4.8); SODIUM 141 mmol/L (136-145)
[2020-04-11 20:05] LABS: CALCIUM 9.5 mg/dL (8.3-10.5)
[2020-04-11 20:06] LABS: GLUCOSE 139 mg/dL (65-105); TOTAL PROTEIN 6.9 g/dL (6.2-8.1)
[2020-04-11 20:07] LABS: CARBON DIOXIDE 26 mmol/L (23-31)
[2020-04-11 20:08] LABS: TOTAL BILIRUBIN 0.7 mg/dL (0.2-1.2)
[2020-04-11 20:12] LABS: AST-SGOT 18 U/L (5-34)
[2020-04-11 20:13] LABS: ALT/SGPT 17 U/L (0-55)
[2020-04-11 20:18] LABS: TROPONIN-I < 0.03 ng/mL (<0.030)
[2020-04-11 20:52] LABS: LIPASE 12 U/L (8-78)
[2020-04-11 22:22] LABS: URINE APPEARANCE HAZY; URINE COLOR YELLOW
[2020-04-11 22:23] LABS: URINE BILIRUBIN NEGATIVE (NEGATIVE); URINE BLOOD NEGATIVE (NEGATIVE); URINE GLUCOSE NEGATIVE (NEGATIVE); URINE KETONE NEGATIVE (NEGATIVE); URINE LEUKOCYTE ESTERASE NEGATIVE (NEGATIVE); URINE NITRATE NEGATIVE (NEGATIVE); URINE PROTEIN(semi-quant) TRACE mg/dL (NEGATIVE); URINE UROBILINOGEN NORMAL (NORMAL); URINE WBC 0-1 /hpf (0-3)
--- NOTE | 2020-04-12 01:05 | NUR ---
Patient admitted via wheel chair from ER with DX of DM 2, CKD, and nausea, vomiting and constipation. No BM for 4 days. Patient ambulates with walker to the bathroom and voids. Reports low back pain with movement but denies needs at this time. O2 on 2.5 L pnc. Patient wears home cpap at night but did not bring. Oriented to room and call light, safety. Bed alarm on. Patient states she's on 1500 ml fluid restriction at home. See admission assessment.
[2020-04-12 01:27] VITALS: BP 127/65
[2020-04-12 02:31] VITALS: BP 127/65
--- NOTE | 2020-04-12 03:19 | NUR ---
Patient has been resting with eyes closed. Mouth breaths o2 on 2.5 l pnc. IVF's running at 83mls/hr.
--- NOTE | 2020-04-12 03:33 | NUR ---
Patient called for blood sugar test "just feel a little odd". Accu check 160.
[2020-04-12 05:04] VITALS: BP 129/70
[2020-04-12 06:56] LABS: POTASSIUM 4.4 mmol/L (3.5-5.1)
[2020-04-12 06:57] LABS: CALCIUM 9.2 mg/dL (8.3-10.5)
[2020-04-12 09:08] VITALS: BP 107/55
--- NOTE | 2020-04-12 09:17 | NUR ---
GRETA MATUTE PA AT BEDSIDE ROUNDING ON PATIENT, DISCUSSING DC LATER TODAY, PT STATES HER "BREATHING IS GREAT," SHE JUST BEEN STRUGGLING WITH CHRONIC BACK PAIN, PT REPORTS MINIMAL NAUSEA, ATE ALL OF BREAKFAST, TOOK AM PO PILLS WITH NO DIFFICULTY, GRETA REPORTS XRAY OF ABDOMEN LOOKED GOOD AND PT IS NOT "FULL OF STOOL" AFTER ALL, PRN ZOFRAN AND TYLENOL ADMINISTERED, PT AGREEABLE TO SEE "HOW THE REST OF THE DAY GOES" AND THEN POTENTIALLY LEAVING LATER TODAY
--- NOTE | 2020-04-12 09:46 | NUR ---
ROUNDING ON PATIENTS, ORDERS VERBALLY TO GIVE FLU SHOT PRIOR TO DC TODAY
--- NOTE | 2020-04-12 10:32 | NUR ---
PT RESTING IN BED, REPORTS TO THIS NURSE "I AM FEELING MUCH BETTER, I AM READY TO GO HOME AND TAKE CARE OF MYSELF," NOTIFIED PROVIDER
--- NOTE | 2020-04-12 12:35 | NUR ---
PT ATE 100% OF LUNCH, DENIES NAUSEA, DENIES PAIN, DENIES NEEDS, REPORTS "I'M READY TO GO" ONCE AGAIN, DC PAPERWORK BEING PRINTED AND REVIEWED AT THIS TIME, WILL ESCORT PT OUT FOLLOWING DC INSTRUCTIONS
--- NOTE | 2020-04-12 13:54 | NUR ---
ALL DC PAPERWORK AND NEW ORDERS/F/U APPTS REVIEWED AND UNDERSTOOD AT THIS TIME, DENIES FURTHER QUESTIONS OR CONCERNS, SON PROVIDING TRANSPORTATION HOME
== END 2020-04-12 14:09 | disposition home health service (06) ==
LOC: ED 19:24 → MED/SURG 04-12 00:02
PROVIDERS: ADMIT Nurse Practitioner Family
DX: R11.2 Nausea with vomiting, unspecified (principal); G89.29 Other chronic pain; M54.5 Low back pain; R53.81 Other malaise; K59.00 Constipation, unspecified; E11.22 Type 2 diabetes mellitus with diabetic chronic kidney disease; N18.9 Chronic kidney disease, unspecified; J44.9 Chronic obstructive pulmonary disease, unspecified; I50.9 Heart failure, unspecified; I48.91 Unspecified atrial fibrillation; Z20.828 Contact with and (suspected) exposure to other viral communicable diseases; E11.42 Type 2 diabetes mellitus with diabetic polyneuropathy; F41.9 Anxiety disorder, unspecified; I25.10 Atherosclerotic heart disease of native coronary artery without angina pectoris; I73.9 Peripheral vascular disease, unspecified; F32.9 Major depressive disorder, single episode, unspecified; K21.9 Gastro-esophageal reflux disease without esophagitis; Z96.652 Presence of left artificial knee joint; Z90.710 Acquired absence of both cervix and uterus; Z88.0 Allergy status to penicillin; Z88.2 Allergy status to sulfonamides; Z88.8 Allergy status to other drugs, medicaments and biological substances
CPT/HCPCS: G0378; J1815; J2405; J7030

== ENCOUNTER 2020-04-14 16:34 | Inpatient (IN) | payer MEDICARE, BC ==
[~2020-04-14] VITALS: Ht 170.2 cm; Wt 123.5 kg
[2020-04-14 17:38] VITALS: BP 140/69
[2020-04-14 17:45] VITALS: BP 140/69
[2020-04-14] MEDS ORDERED: KLONOPIN 0.5MG0.5 MG (17:54)
[2020-04-14 21:53] VITALS: BP 114/58
[2020-04-15 02:10] VITALS: BP 131/71
[2020-04-15 05:52] VITALS: BP 129/78
[2020-04-15 10:03] VITALS: BP 133/76
[2020-04-15 14:11] VITALS: BP 119/66
[2020-04-15 19:18] VITALS: BP 129/75
[2020-04-15 22:14] VITALS: BP 117/65
[2020-04-16 02:00] VITALS: BP 150/87
[2020-04-16 05:33] VITALS: BP 146/79
[2020-04-16 10:15] VITALS: BP 128/63
[2020-04-16 14:00] VITALS: BP 158/69
[2020-04-16 17:15] VITALS: BP 126/75
[2020-04-16 21:28] VITALS: BP 154/85
[2020-04-17 02:00] VITALS: BP 154/70
[2020-04-17 05:50] VITALS: BP 155/85
[2020-04-17 07:42] LABS: POTASSIUM 4.2 mmol/L (3.5-5.1)
[2020-04-17 07:44] LABS: CALCIUM 9.3 mg/dL (8.3-10.5)
[2020-04-17] MEDS ORDERED: PREDNISONE20 M1 PO (09:52)
[2020-04-17 09:59] VITALS: BP 126/72
== END 2020-04-17 10:26 | disposition home or self-care (01) | DRG 292 ==
LOC: MED/SURG 16:34
PROVIDERS: Family Medicine; ADMIT Internal Medicine
DX: I13.0 Hypertensive heart and chronic kidney disease with heart failure and stage 1 through stage 4 chronic kidney disease, or unspecified chronic kidney disease (principal); E87.2 Acidosis; I48.91 Unspecified atrial fibrillation; I50.9 Heart failure, unspecified; J44.9 Chronic obstructive pulmonary disease, unspecified; J84.10 Pulmonary fibrosis, unspecified; E11.22 Type 2 diabetes mellitus with diabetic chronic kidney disease; E11.51 Type 2 diabetes mellitus with diabetic peripheral angiopathy without gangrene; M48.00 Spinal stenosis, site unspecified; G89.29 Other chronic pain; M54.5 Low back pain; Z79.4 Long term (current) use of insulin; Z96.652 Presence of left artificial knee joint; Z90.710 Acquired absence of both cervix and uterus; Z88.2 Allergy status to sulfonamides; Z88.5 Allergy status to narcotic agent
CPT/HCPCS: J1815; J2920; J7512

== ENCOUNTER → 2020-05-27 | Outpatient (CLI) | payer MEDICARE, BC ==
[~2020-05-27] MED LIST changes: +KLONOPIN 0.5MG0.5 MG
[2020-05-27 16:50] LABS: POTASSIUM 4.3 mmol/L (3.5-5.1)
[2020-05-27 16:51] LABS: CALCIUM 9.3 mg/dL (8.3-10.5)
== END ==
LOC: LAB 14:03
PROVIDERS: Family Medicine
DX: R60.0 Localized edema (principal)

== ENCOUNTER → 2020-06-16 | Outpatient (CLI) | payer MEDICARE, BC ==
[2020-06-16 12:40] LABS: EOS # 0.1 (0.04-0.40); EOS % 1.9 % (1.0-5.0); HEMOGLOBIN 12.5 g/dL (12.5-16.0); LYMPH# 0.8 (1.50-4.00); MEAN CELL VOLUME 98 fl (78-100); MEAN CORPUSCULAR HEMOGLOBIN 30 pg (27-31); MEAN CORPUSCULAR HGB CONC 31 g/dL (33-37); MEAN PLATELET VOLUME 11.1 fl (7.4-10.4); MONO # 0.4 (0.20-0.80); NEU # 3.8 (1.40-6.50); PLATELET COUNT 191 K/mm3 (130-400); WHITE BLOOD COUNT 5.2 K/mm3 (4.8-10.8)
[2020-06-16 12:47] LABS: ALBUMIN 3.9 g/dL (3.4-4.8); POTASSIUM 4.1 mmol/L (3.5-5.1)
[2020-06-16 12:48] LABS: CALCIUM 9.3 mg/dL (8.3-10.5)
[2020-06-16 12:52] LABS: TOTAL BILIRUBIN 0.6 mg/dL (0.2-1.2)
== END ==
LOC: LAB 12:25
PROVIDERS: Family Medicine
DX: E11.40 Type 2 diabetes mellitus with diabetic neuropathy, unspecified (principal); E11.22 Type 2 diabetes mellitus with diabetic chronic kidney disease; I50.32 Chronic diastolic (congestive) heart failure; N18.31 Chronic kidney disease, stage 3a; L40.0 Psoriasis vulgaris; L21.8 Other seborrheic dermatitis

== ENCOUNTER → 2020-06-21 | Outpatient (CLI) | payer MEDICARE, BC | LOC: LAB 11:30 | DX: Z01.812 Encounter for preprocedural laboratory examination (principal); Z20.822 Contact with and (suspected) exposure to COVID-19 ==

== ENCOUNTER → 2020-07-03 | Outpatient (CLI) | payer MEDICARE, BC ==
[2020-07-03 14:34] LABS: CALCIUM 9.1 mg/dL (8.3-10.5)
== END ==
LOC: LAB 14:19
PROVIDERS: Internal Medicine Nephrology
DX: N18.4 Chronic kidney disease, stage 4 (severe) (principal)

== ENCOUNTER → 2020-08-11 | Outpatient (CLI) | payer MEDICARE, BC ==
[2020-07-29 18:09] VITALS: BP 130/42
[~2020-08-11] MED LIST changes: +ACETAMINOPHEN325 M1 PO; +CALCIPOTRIENE TP; +CIPRO 500MG TA500 MG PO; +CLOBETASOL PROP25 ML TP; +DOXYCYCLINE MO100 M3 PO; +FAMOTIDINE20 MG PO; +KLONOPIN 0.5MG0.5 MG PO; +NYSTATIN 100MU/M1 ML PO; +SODIUM CHLORIDE4 M1 IH; +ZAROXOLYN PO
[2020-08-11 13:49] LABS: ALBUMIN 3.6 g/dL (3.4-4.8)
[2020-08-11 13:50] LABS: CALCIUM 8.9 mg/dL (8.3-10.5)
[2020-08-11 13:53] LABS: TOTAL BILIRUBIN 0.5 mg/dL (0.2-1.2)
== END ==
LOC: LAB 13:17
PROVIDERS: Family Medicine
DX: N18.31 Chronic kidney disease, stage 3a (principal)

== ENCOUNTER → 2020-08-28 | Outpatient (CLI) | payer MEDICARE, BC ==
[2020-07-29 18:09] VITALS: BP 130/42
[2020-08-28 14:49] LABS: EOS # 0.3 (0.04-0.40); EOS % 3.6 % (1.0-5.0); HEMATOCRIT 41.2 % (37.0-47.0); HEMOGLOBIN 13.1 g/dL (12.5-16.0); MEAN CELL VOLUME 97 fl (78-100); MEAN CORPUSCULAR HEMOGLOBIN 31 pg (27-31); MEAN CORPUSCULAR HGB CONC 32 g/dL (33-37); MEAN PLATELET VOLUME 10.2 fl (7.4-10.4); MONO # 0.5 (0.20-0.80); NEU # 5.1 (1.40-6.50); PLATELET COUNT 228 K/mm3 (130-400); RED BLOOD COUNT 4.27 M/mm3 (4.10-5.30); RED CELL DISTRIBUTION WIDTH 14.8 % (11.5-14.5); WHITE BLOOD COUNT 6.9 K/mm3 (4.8-10.8)
[2020-08-28 15:57] LABS: ERYTHROCYTE SEDIMENTATION RATE 77 mm/hr (0-30)
== END ==
LOC: LAB 14:14
PROVIDERS: Family Medicine
DX: M15.9 Polyosteoarthritis, unspecified (principal)

== ENCOUNTER → 2020-09-12 | Outpatient (CLI) | payer MEDICARE, BC ==
[2020-07-29 18:09] VITALS: BP 130/42
== END ==
LOC: LAB 16:31
DX: M15.9 Polyosteoarthritis, unspecified (principal); J44.9 Chronic obstructive pulmonary disease, unspecified

== ENCOUNTER → 2020-09-15 | Outpatient (CLI) | payer MEDICARE, BC ==
[2020-07-29 18:09] VITALS: BP 130/42
[2020-09-15 14:02] LABS: POTASSIUM 4.3 mmol/L (3.5-5.1)
[2020-09-15 14:03] LABS: CALCIUM 9.5 mg/dL (8.3-10.5)
[2020-09-15 14:18] LABS: URINE APPEARANCE CLEAR; URINE BILIRUBIN NEGATIVE (NEGATIVE); URINE BLOOD NEGATIVE (NEGATIVE); URINE COLOR YELLOW; URINE GLUCOSE NEGATIVE (NEGATIVE); URINE KETONE NEGATIVE (NEGATIVE); URINE LEUKOCYTE ESTERASE TRACE (NEGATIVE); URINE NITRATE NEGATIVE (NEGATIVE); URINE PROTEIN(semi-quant) NEGATIVE (NEGATIVE); URINE UROBILINOGEN NORMAL (NORMAL)
== END ==
LOC: LAB 13:36
PROVIDERS: Family Medicine
DX: R10.9 Unspecified abdominal pain (principal)

== ENCOUNTER → 2020-09-21 | Outpatient (CLI) | payer MEDICARE, BC ==
[2020-07-29 18:09] VITALS: BP 130/42
== END ==
LOC: LAB 19:20
DX: M15.9 Polyosteoarthritis, unspecified (principal); J44.9 Chronic obstructive pulmonary disease, unspecified; M25.559 Pain in unspecified hip; M25.569 Pain in unspecified knee

== ENCOUNTER → 2020-10-24 | Outpatient (CLI) | payer MEDICARE, BC ==
[2020-10-24 08:41] VITALS: BP 137/58
[2020-10-24 23:51] LABS: POTASSIUM 3.4 mmol/L (3.5-5.1)
[2020-10-24 23:52] LABS: CALCIUM 10.7 mg/dL (8.3-10.5)
[2020-10-25] LABS: ALBUMIN 3.7 g/dL (3.4-4.8)
[2020-10-25 00:09] LABS: BASO # 0.04 (0.02-0.10); EOS % 3.1 % (1.0-5.0); HEMATOCRIT 37.7 % (37.0-47.0); HEMOGLOBIN 12.7 g/dL (12.5-16.0); LYMPH# 1.35 (1.50-4.00); MEAN CELL VOLUME 95 fl (78-100); MEAN CORPUSCULAR HEMOGLOBIN 32 pg (27-31); MEAN CORPUSCULAR HGB CONC 34 g/dL (33-37); MEAN PLATELET VOLUME 10.8 fl (7.4-10.4); MONO # 0.63 (0.20-0.80); NEU # 4.14 (1.40-6.50); PLATELET COUNT 192 K/mm3 (130-400); RED BLOOD COUNT 3.96 M/mm3 (4.10-5.30); RED CELL DISTRIBUTION WIDTH 13.4 % (11.5-14.5); WHITE BLOOD COUNT 6.4 K/mm3 (4.8-10.8)
== END ==
LOC: LAB 20:38
PROVIDERS: Family Medicine
DX: E11.40 Type 2 diabetes mellitus with diabetic neuropathy, unspecified (principal); E11.21 Type 2 diabetes mellitus with diabetic nephropathy; E11.22 Type 2 diabetes mellitus with diabetic chronic kidney disease; N18.4 Chronic kidney disease, stage 4 (severe); N20.0 Calculus of kidney

== ENCOUNTER 2020-10-26 08:23 | Outpatient (RCR) | payer MEDICARE, BC ==
[2020-10-17 09:06] VITALS: BP 138/51
[2020-10-17 20:45] VITALS: BP 114/59
[2020-10-18 20:30] VITALS: BP 114/52
[2020-10-19 09:50] VITALS: BP 141/56
[2020-10-19 20:30] VITALS: BP 127/69
[2020-10-20 08:35] VITALS: BP 116/51
--- NOTE | 2020-10-20 20:30 | NUR ---
Pt called in and reported she would not becoming into night for antibiotic. State she was having car trouble. Pt state she was not sure if she would make it in tomorrow morning at 0800 for antibiotic. I asked pt to call us if she was unable to come in. Pt agreed to call.
[2020-10-21 08:38] VITALS: BP 97/40
[2020-10-21 20:30] VITALS: BP 155/75
[2020-10-21 20:47] VITALS: BP 124/64
[2020-10-22 08:44] VITALS: BP 93/68
[2020-10-22 20:46] VITALS: BP 141/72
[2020-10-22 20:52] VITALS: BP 141/59
[2020-10-23 08:27] VITALS: BP 121/62
[2020-10-23 20:27] VITALS: BP 137/71
[2020-10-23 21:00] VITALS: BP 126/54
[2020-10-24 08:41] VITALS: BP 137/58
[2020-10-24 20:33] VITALS: BP 132/55
[2020-10-25 08:33] VITALS: BP 140/62
[2020-10-25 20:15] VITALS: BP 133/68
[~2020-10-26 08:23] MED LIST changes: -ACETAMINOPHEN325 M1 PO; -CALCIPOTRIENE TP; -CLOBETASOL PROP25 ML TP; -DOXYCYCLINE MO100 M3 PO; -KLONOPIN 0.5MG0.5 MG PO; -SODIUM CHLORIDE4 M1 IH
[2020-10-26 08:29] VITALS: BP 123/66
[2020-10-26 08:34] VITALS: BP 116/62
[2020-10-26 20:50] VITALS: BP 132/55
--- NOTE | 2020-10-26 21:02 | NUR ---
Last dose of ABT per patient and JUL. INT D/C'd, cath intact. Ambulated with wheeled walker out of facility. Accompanied by Granddaughter. Stable condition.
== END 2020-10-26 20:55 | disposition still patient (30) ==
LOC: AMSURD 08:23
DX: J18.9 Pneumonia, unspecified organism (principal); Z79.899 Other long term (current) drug therapy
CPT/HCPCS: J0692

== ENCOUNTER → 2020-10-31 | Outpatient (CLI) | payer MEDICARE, BC ==
[2020-10-26 20:50] VITALS: BP 132/55
[~2020-10-31] MED LIST changes: +ACETAMINOPHEN325 M1 PO; +CALCIPOTRIENE TP; +CLOBETASOL PROP25 ML TP; +DOXYCYCLINE MO100 M3 PO; +KLONOPIN 0.5MG0.5 MG PO; +SODIUM CHLORIDE4 M1 IH
[2020-10-31 11:06] LABS: POTASSIUM 3.8 mmol/L (3.5-5.1)
[2020-10-31 11:08] LABS: CALCIUM 9.3 mg/dL (8.3-10.5)
== END ==
LOC: LAB 10:47
PROVIDERS: Internal Medicine Nephrology
DX: E11.22 Type 2 diabetes mellitus with diabetic chronic kidney disease (principal); N18.4 Chronic kidney disease, stage 4 (severe); E11.40 Type 2 diabetes mellitus with diabetic neuropathy, unspecified

== ENCOUNTER 2020-11-25 10:42 | Emergency (ER) | payer MEDICARE, BC ==
[~2020-11-25 10:42] MED LIST changes: -ACETAMINOPHEN325 M1 PO; -CALCIPOTRIENE TP; -CLOBETASOL PROP25 ML TP; -DOXYCYCLINE MO100 M3 PO; -KLONOPIN 0.5MG0.5 MG PO; -SODIUM CHLORIDE4 M1 IH
[2020-11-25 11:28] LABS: BASO # 0.04 (0.02-0.10); EOS # 0.32 (0.04-0.40); EOS % 5.6 % (1.0-5.0); HEMATOCRIT 36.5 % (37.0-47.0); HEMOGLOBIN 11.9 g/dL (12.5-16.0); LYMPH# 0.86 (1.50-4.00); MEAN CELL VOLUME 100 fl (78-100); MEAN CORPUSCULAR HEMOGLOBIN 33 pg (27-31); MEAN CORPUSCULAR HGB CONC 33 g/dL (33-37); MEAN PLATELET VOLUME 10.2 fl (7.4-10.4); MONO # 0.51 (0.20-0.80); NEU # 3.98 (1.40-6.50); PLATELET COUNT 198 K/mm3 (130-400); RED BLOOD COUNT 3.64 M/mm3 (4.10-5.30); RED CELL DISTRIBUTION WIDTH 13.4 % (11.5-14.5); WHITE BLOOD COUNT 5.7 K/mm3 (4.8-10.8)
[2020-11-25 11:36] LABS: ALBUMIN 3.5 g/dL (3.4-4.8); POTASSIUM 4.2 mmol/L (3.5-5.1); SODIUM 143 mmol/L (136-145)
[2020-11-25 11:39] LABS: GLUCOSE 130 mg/dL (65-105); TOTAL PROTEIN 6.5 g/dL (6.2-8.1)
[2020-11-25 11:40] LABS: CARBON DIOXIDE 25 mmol/L (23-31)
[2020-11-25 11:41] LABS: TOTAL BILIRUBIN 0.5 mg/dL (0.2-1.2)
[2020-11-25 11:44] LABS: AST-SGOT 13 U/L (5-34)
[2020-11-25 11:45] LABS: ALT/SGPT 11 U/L (0-55)
[2020-11-25 11:52] LABS: TROPONIN-I < 0.03 ng/mL (<0.030)
[2020-11-25] MEDS ORDERED: BUMEX 1MG TA1 MG/TA1 PO (12:06)
[2020-11-25] MEDS ORDERED: CALCIPOTRIENE TP (12:08)
[2020-11-25] MEDS ORDERED: MELOXICAM15 MG PO (12:40)
[2020-11-25] MEDS ORDERED: CLOBETASOL PROP25 ML TP (13:31)
[2020-11-25] MEDS ORDERED: DILTIAZEM 24HR180 M1 PO (13:33)
[2020-11-25] MEDS ORDERED: SODIUM CHLORIDE4 M1 IH (13:36)
[2020-11-25 14:36] VITALS: BP 138/58
[2020-11-25] MEDS ORDERED: LANTUS SOLOS100 U/ML SQ ×2 (14:43→14:44)
== END 2020-11-25 14:14 | disposition other institution (70) ==
LOC: ED 10:42
PROVIDERS: Family Medicine
DX: J45.901 Unspecified asthma with (acute) exacerbation (principal); I13.0 Hypertensive heart and chronic kidney disease with heart failure and stage 1 through stage 4 chronic kidney disease, or unspecified chronic kidney disease; E11.22 Type 2 diabetes mellitus with diabetic chronic kidney disease; N18.9 Chronic kidney disease, unspecified; I50.9 Heart failure, unspecified; J44.9 Chronic obstructive pulmonary disease, unspecified; F41.9 Anxiety disorder, unspecified; Z20.822 Contact with and (suspected) exposure to COVID-19; Z79.899 Other long term (current) drug therapy; Z79.01 Long term (current) use of anticoagulants; Z79.4 Long term (current) use of insulin
CPT/HCPCS: J2930

== ENCOUNTER 2020-11-28 14:50 | Inpatient (IN) | payer MEDICARE, BC ==
[~2020-11-28 14:50] MED LIST changes: +CALCIPOTRIENE TP; +CLOBETASOL PROP25 ML TP; +SODIUM CHLORIDE4 M1 IH
[2020-11-28] MEDS ORDERED: ACETAMINOPHEN325 M1 PO (18:27)
[2020-11-28] MEDS ORDERED: DOXYCYCLINE MO100 M3 PO (18:27)
[2020-11-28] MEDS ORDERED: KLONOPIN 0.5MG0.5 MG PO (18:28)
[2020-11-28 19:06] VITALS: BP 163/50
[2020-11-29 06:19] VITALS: BP 135/67
[2020-11-29 10:00] LABS: HEMATOCRIT 38.7 % (37.0-47.0); HEMOGLOBIN 12.3 g/dL (12.5-16.0); MEAN CELL VOLUME 103 fl (78-100); MEAN CORPUSCULAR HEMOGLOBIN 33 pg (27-31); MEAN CORPUSCULAR HGB CONC 32 g/dL (33-37); PLATELET COUNT 183 K/mm3 (130-400); RED BLOOD COUNT 3.76 M/mm3 (4.10-5.30); RED CELL DISTRIBUTION WIDTH 13.7 % (11.5-14.5); WHITE BLOOD COUNT 9.9 K/mm3 (4.8-10.8)
[2020-11-29 10:02] LABS: POTASSIUM 4.1 mmol/L (3.5-5.1)
[2020-11-29 10:03] LABS: CALCIUM 8.7 mg/dL (8.3-10.5)
[2020-11-29 11:25] LABS: LYMPHOCYTE 7 % (20-51); MONOCYTE 4 % (3-10); NEUTROPHILS 89 % (42-75); OVALOCYTES 1+
[2020-11-29 15:59] VITALS: BP 133/75
[2020-11-30 05:29] VITALS: BP 150/71
[2020-11-30 16:23] VITALS: BP 125/65
[2020-12-01 06:04] VITALS: BP 145/73
[2020-12-01 07:20] LABS: POTASSIUM 3.9 mmol/L (3.5-5.1)
[2020-12-01 07:21] LABS: CALCIUM 8.2 mg/dL (8.3-10.5)
[2020-12-01 18:01] VITALS: BP 138/68
[2020-12-02 06:06] VITALS: BP 147/70
[2020-12-02 17:41] VITALS: BP 123/72
[2020-12-03 06:06] VITALS: BP 130/65
[2020-12-03 16:10] VITALS: BP 126/69
[2020-12-04 06:02] VITALS: BP 130/56
[2020-12-04 18:26] VITALS: BP 154/77
[2020-12-05 05:32] VITALS: BP 153/68
[2020-12-05] MEDS ORDERED: PREDNISONE10 MG PO (11:16)
== END 2020-12-05 13:00 | disposition home health service (06) | DRG 948 ==
LOC: MED/SURG 14:50
PROVIDERS: Physician Assistant; ADMIT Family Medicine
DX: R53.81 Other malaise (principal); I13.0 Hypertensive heart and chronic kidney disease with heart failure and stage 1 through stage 4 chronic kidney disease, or unspecified chronic kidney disease; J44.1 Chronic obstructive pulmonary disease with (acute) exacerbation; I50.9 Heart failure, unspecified; J84.10 Pulmonary fibrosis, unspecified; N18.9 Chronic kidney disease, unspecified; I12.9 Hypertensive chronic kidney disease with stage 1 through stage 4 chronic kidney disease, or unspecified chronic kidney disease; E11.22 Type 2 diabetes mellitus with diabetic chronic kidney disease; Z66 Do not resuscitate; F41.9 Anxiety disorder, unspecified; Z96.652 Presence of left artificial knee joint; Z90.710 Acquired absence of both cervix and uterus; Z88.0 Allergy status to penicillin; Z88.2 Allergy status to sulfonamides; Z88.5 Allergy status to narcotic agent
CPT/HCPCS: J0696; J1815; J7512

== ENCOUNTER → 2021-01-26 | Outpatient (CLI) | payer MEDICARE, BC ==
[~2021-01-26] MED LIST changes: +ACETAMINOPHEN325 M1 PO; +DOXYCYCLINE MO100 M3 PO; +KLONOPIN 0.5MG0.5 MG PO
== END ==
LOC: RAD 10:46
DX: M17.11 Unilateral primary osteoarthritis, right knee (principal)

== ENCOUNTER → 2021-02-20 | Outpatient (CLI) | payer MEDICARE, BC ==
[2021-02-21 10:37] LABS: ANA SCREEN with REFLEX Negative (Negative)
== END ==
LOC: LAB 14:01
PROVIDERS: Physician Assistant
DX: I27.20 Pulmonary hypertension, unspecified (principal)

== ENCOUNTER → 2021-02-23 | Outpatient (CLI) | payer MEDICARE, BC ==
[2021-02-23 17:07] LABS: CALCIUM 10.6 mg/dL (8.3-10.5)
== END ==
LOC: LAB 16:54
PROVIDERS: Family Medicine
DX: N18.4 Chronic kidney disease, stage 4 (severe) (principal); J44.9 Chronic obstructive pulmonary disease, unspecified; I50.32 Chronic diastolic (congestive) heart failure

== ENCOUNTER → 2021-03-14 | Outpatient (CLI) | payer MEDICARE, BC | LOC: LAB 10:11 | DX: Z01.818 Encounter for other preprocedural examination (principal); Z20.822 Contact with and (suspected) exposure to COVID-19 ==